=== PATIENT | male | born 1935 | race African-American/Black ===

== ENCOUNTER 2018-05-28 18:43 | Inpatient (IN) | payer MEDICARE, OTHER ==
[2018-05-28 19:47] LABS: HEMOGLOBIN 10.8 gm/dL (12-16); RED BLOOD COUNT 3.85 Mil/cmm (3.80-5.80)
[2018-05-28 19:49] LABS: HEMATOCRIT 32.9 % (41.0-60); MEAN CELL VOLUME 85.6 fl (80-99); MEAN CORPUSCULAR HGB CONC 32.8 pg (28.0-36.0); MEAN PLATELET VOLUME 9.4 fl; PLATELET COUNT 456 Th/cmm (150-400); RED CELL DISTRIBUTION WIDTH 15.7 % (11.5-20.0)
[2018-05-28 19:51] LABS: WHITE BLOOD COUNT 19.8 Th/cmm (4.8-10.8)
[2018-05-28 20:08] LABS: BAND NEUTROPHILE 7 % (0-10); LYMPHOCYTE 6 % (20-50); MONOCYTE 5 % (2-10); NEUTROPHILS 82 % (40-80)
[2018-05-28 20:11] LABS: ALB/GLOB RATIO 0.7 (1.0-1.8); ALBUMIN 3.5 gm/dL (4.2-5.5); ALKALINE PHOSPHATASE 78 U/L (34-104); ANION GAP 10.7 (7.0-16.0); BILIRUBIN,TOTAL 0.3 mg/dL (0.3-1.0); BUN - UREA NITROGEN 32 mg/dL (7-25); CARBON DIOXIDE 34.5 mEq/L (21.0-31.0); CHLORIDE 94 mEq/L (98-107); CREATININE - SERUM 0.8 mg/dL (0.7-1.3); GLUCOSE 119 mg/dL (70-105); POTASSIUM SERUM 4.2 mEq/L (3.5-5.1); SGOT 22 U/L (13-39); SGPT/ALT 10 U/L (7-52); SODIUM SERUM 135 mEq/L (136-145); TOTAL PROTEIN,SERUM 8.7 gm/dL (6.0-8.3)
[2018-05-28] MEDS ORDERED: Piperacillin Sodium/Tazobact 3.375 gm Vial IV ONE (20:56)
[2018-05-28] MEDS ORDERED: Magnesium Hydroxide (MOM) 30 mL UDC GT PRN (22:11)
[2018-05-28] MEDS ORDERED: guaiFENesin 200 MG/10 ML UDC PO PRN (22:13)
[2018-05-28] MEDS ORDERED: Maalox 30 mL Cup PO PRN (22:13)
[2018-05-28] MEDS ORDERED: Hydrocodone/APAP 5mg/325mg Tab PO PRN (22:13)
[2018-05-28] MEDS ORDERED: D5-0.45NS 1,000 ML IV SCH (22:15)
[2018-05-28] MEDS: D5-0.45NS 1,000 ML IV SCH (23:09)
[2018-05-29 03:10] VITALS: BP 116/65
--- NOTE | 2018-05-29 06:03 | ED Physician Chart ---
ED Chief Complaint/HPI - Patient Information Date Seen:: 05/29/18 Time Seen:: 19:20 Chief Complaint:: ABN LABS History of Present Illness:: 83 YR OLD MALE FROM [place] WITH ABN LABS ELEVATED WBC TO 20 K PT NON VERBAL AND TRACH IN PLACE MUCG COUGH AND SECRETIONS Allergies:: Allergies Allergy/AdvReac Type Severity Reaction Status Date / Time No Known Allergies Allergy Verified 05/28/18 19:04 ED Review of Systems - Review of Systems General/Constitutional: No fever Skin: No skin lesions Neck: No neck pain Cardio Vascular: No chest pain Pulmonary: No SOB GI: No vomiting, No diarrhea G/U: No dysuria Musculoskeletal: No bone or joint pain Endocrine: No polyuria Allergic/Immuno: No urticaria Neurological: No focal symptoms ED Past Medical History - Past Medical History Obtainable: No Past Medical History: Asthma/COPD, Dyslipidemia, Other (PNEUMONIA SEPSIS COPD AFIB CELLULITIS) Surgical History: PEG/GTube, other (TRACH) Family Medical History - Family Member Mother History Unknown: Yes Ethnicity: Unknown Living Status: Unknown ED Physical Exam - Physical Examination General/Constitutional: Alert Head: Atraumatic ENMT: External ears, nose nl Neck: Nontender Respiratory: Nl effort/Exclusion Cardio Vascular: RRR, No murmur, gallop, rubs GI: No tenderness/rebounding/guarding Extremities: No tenderness or effusion ED Labs/Radiology/EKG Results - Lab Results Results: Laboratory Tests 05/28/18 05/28/18 05/28/18 19:35 19:35 19:35 WBC 19.8 H RBC 3.85 Hgb 10.8 L Hct 32.9 L MCV 85.6 MCH 28.0 MCHC Differential 32.8 RDW 15.7 Plt Count 456 H MPV 9.4 Add Manual Diff YES Neutrophils % SPECIFICATION MANAGER Band Neutrophils % 7 Lymphocytes % SPECIFICATION MANAGER Monocytes % SPECIFICATION MANAGER Eosinophils % SPECIFICATION MANAGER Basophils % SPECIFICATION MANAGER Neutrophils (Manual) 82 H Lymphocytes 6 L Monocytes 5 Sodium 135 L Potassium 4.2 Chloride 94 L Carbon Dioxide 34.5 H Anion Gap 10.7 BUN 32 H Creatinine 0.8 Est GFR ( Amer) TNP Est GFR (Non-Af Amer) TNP BUN/Creatinine Ratio 40.0 Glucose 119 H Whole Bld Lactic Acid Calcium 10.0 Total Bilirubin 0.3 AST 22 ALT 10 Alkaline Phosphatase 78 Total Protein 8.7 H Albumin 3.5 L Globulin 5.2 Albumin/Globulin Ratio 0.7 L TSH 2.08 05/28/18 19:35 WBC RBC Hgb Hct MCV MCH MCHC Differential RDW Plt Count MPV Add Manual Diff Neutrophils % Band Neutrophils % Lymphocytes % Monocytes % Eosinophils % Basophils % Neutrophils (Manual) Lymphocytes Monocytes Sodium Potassium Chloride Carbon Dioxide Anion Gap BUN Creatinine Est GFR ( Amer) Est GFR (Non-Af Amer) BUN/Creatinine Ratio Glucose Whole Bld Lactic Acid 2.16 H* Calcium Total Bilirubin AST ALT Alkaline Phosphatase Total Protein Albumin Globulin Albumin/Globulin Ratio TSH ED Assessment - Assessment General Assessment: TRACH ELEVATED WBC CXR NO FULMINANT INFILTRATE ED Septic Shock - . Is Septic Shock (SBP<90, OR Lactate>4 mmol\L) present?: No ED Reassessment (Disposition) - Reassessment Reassessment:: TRACH ELEVATED WBC Reassessment Condition:: Improved - Diagnosis Diagnosis:: TRACH WBC 20 POSSIBLE SEPSIS - Patient Disposition Discharge/Transfer:: Acute Care w/in this hosp
[2018-05-29] MEDS: Ipratropium Neb 0.5 mg/2.5 mL UD HHN SCH ×4 (06:40→19:28)
[2018-05-29] MEDS: Albuterol Nebulizer 2.5mg/3mL HHN SCH ×4 (06:40→19:28)
[2018-05-29] MEDS ORDERED: INSULIN HUMAN REGULAR 100 UNITS/ML UNIT SUBQ SCH (09:00)
--- NOTE | 2018-05-29 09:35 | Diagnostic Imaging Report ---
Exam: Portable chest x-ray HISTORY: Shortness of breath. Findings: Portable examination of the chest at 1948 hours reviewed, no prior studies available for comparison. The study demonstrates left basilar infiltrate and effusion. The right lung parenchyma is well aerated. Tracheostomy tube midline. Bony thorax intact. IMPRESSION: Left basilar infiltrate and effusion. Follow-up exam is recommended.
[2018-05-29] MEDS: Multivitamin w/ Minerals 15 mL UDC GT SCH (09:45)
[2018-05-29] MEDS: Pantoprazole 40 mg/Packet GT SCH (09:45)
[2018-05-29] MEDS: Chlorhexidine Gluconate 0.12% 480mL Bottle MM SCH ×2 (09:46)
[2018-05-29] MEDS: Lidocaine 5% Patch TD SCH (09:47)
[2018-05-29] MEDS: Ferrous Sulfate 300 MG/5 ML UDC GT SCH ×2 (10:07→16:46)
[2018-05-29] MEDS: DICLOFENAC SODIUM 1% TP SCH ×3 (10:10→16:28)
[2018-05-29] MEDS: INSULIN ASPART SLIDING SCALE 100 UNITS/ML UNIT SUBQ SCH (10:44)
[2018-05-29] MEDS: D5-0.45NS 1,000 ML IV SCH (12:43)
--- NOTE | 2018-05-29 14:50 | Internal Medicine Prog Note ---
Internal Medicine Subjective - Subjective Service Date: 05/29/18 ([id number] [facility]) Internal Medicine Objective - Results Result Diagrams: 05/28/18 19:35 05/28/18 19:35 Recent Labs: Laboratory Last Values WBC 19.8 Th/cmm (4.8-10.8) H 05/28/18 19:35 RBC 3.85 Mil/cmm (3.80-5.80) 05/28/18 19:35 Hgb 10.8 gm/dL (12-16) L 05/28/18 19:35 Hct 32.9 % (41.0-60) L 05/28/18 19:35 MCV 85.6 fl (80-99) 05/28/18 19:35 MCH 28.0 pg (27.0-31.0) 05/28/18 19:35 MCHC Differential 32.8 pg (28.0-36.0) 05/28/18 19:35 RDW 15.7 % (11.5-20.0) 05/28/18 19:35 Plt Count 456 Th/cmm (150-400) H 05/28/18 19:35 MPV 9.4 fl 05/28/18 19:35 Add Manual Diff YES 05/28/18 19:35 Neutrophils % ASSOCIATE 05/28/18 19:35 Band Neutrophils % 7 % (0-10) 05/28/18 19:35 Lymphocytes % ASSOCIATE 05/28/18 19:35 Monocytes % ASSOCIATE 05/28/18 19:35 Eosinophils % ASSOCIATE 05/28/18 19:35 Basophils % ASSOCIATE 05/28/18 19:35 Neutrophils (Manual) 82 % (40-80) H 05/28/18 19:35 Lymphocytes 6 % (20-50) L 05/28/18 19:35 Monocytes 5 % (2-10) 05/28/18 19:35 Sodium 135 mEq/L (136-145) L 05/28/18 19:35 Potassium 4.2 mEq/L (3.5-5.1) 05/28/18 19:35 Chloride 94 mEq/L (98-107) L 05/28/18 19:35 Carbon Dioxide 34.5 mEq/L (21.0-31.0) H 05/28/18 19:35 Anion Gap 10.7 (7.0-16.0) 05/28/18 19:35 BUN 32 mg/dL (7-25) H 05/28/18 19:35 Creatinine 0.8 mg/dL (0.7-1.3) 05/28/18 19:35 Est GFR ( Amer) TNP 05/28/18 19:35 Est GFR (Non-Af Amer) TNP 05/28/18 19:35 BUN/Creatinine Ratio 40.0 05/28/18 19:35 Glucose 119 mg/dL (70-105) H 05/28/18 19:35 POC Glucose 129 MG/DL (70 - 105) H 05/29/18 10:03 Whole Bld Lactic Acid 1.51 mmol/L (0.60-1.99) 05/28/18 21:35 Calcium 10.0 mg/dL (8.6-10.3) 05/28/18 19:35 Total Bilirubin 0.3 mg/dL (0.3-1.0) 05/28/18 19:35 AST 22 U/L (13-39) 05/28/18 19:35 ALT 10 U/L (7-52) 05/28/18 19:35 Alkaline Phosphatase 78 U/L (34-104) 05/28/18 19:35 Total Protein 8.7 gm/dL (6.0-8.3) H 05/28/18 19:35 Albumin 3.5 gm/dL (4.2-5.5) L 05/28/18 19:35 Globulin 5.2 gm/dL 05/28/18 19:35 Albumin/Globulin Ratio 0.7 (1.0-1.8) L 05/28/18 19:35 TSH 2.08 uIU/ml (0.34-5.60) 05/28/18 19:35 RPR NONREACTIVE (NONREACTIVE) 05/28/18 19:35 - Physical Exam Vitals and I&O: Vital Signs Temp 97.0 F 05/29/18 11:39 Pulse 59 05/29/18 11:39 Resp 18 05/29/18 11:39 BP 114/53 05/29/18 11:39 Pulse Ox 100 05/29/18 11:39 Intake & Output 05/28/18 05/29/18 05/29/18 18:59 06:59 18:59 Intake Total 450 1000 Output Total 0 Balance 450 1000 Weight (lbs) 138 lb 8 oz Intake: Intake, IV Amount 50 1000 Cefepime 1 gm In Dextrose 50 5% 50 ml @ 100 mls/hr IV Q24H [facility] Rx#:[id number] D5-0.45NS 1,000 ml @ 100 1000 mls/hr IV .Q10H [facility] Rx#: [id number] Other 400 Output: Gastric Drainage 0 Other: # Voids 2 # Bowel Movements 0 Weight Source Bedscale Active Medications: Current Medications Acetaminophen (Tylenol) 650 mg GT Q6HR PRN PRN Reason: MILD PAIN 1-3 OR TEMP >101 Stop: 07/27/18 22:10 Acetaminophen (Tylenol) 650 mg PO Q4H PRN PRN Reason: Mild Pain 1-3/ Fever above 101 Stop: 07/27/18 22:12 Acetaminophen/Hydrocodone Bitart (Stewardson 5mg/325mg) 1 tab PO Q4H PRN PRN Reason: Pain (Severe) 8-10 Stop: 07/27/18 22:12 Al Hydrox/Mg Hydrox/Simethicone (Maalox) 30 ml PO Q6H PRN PRN Reason: Dyspepsia Stop: 07/27/18 22:12 Albuterol Sulfate (Albuterol 2.5mg/3ml Neb Ud) 2.5 mg HHN QIDRT [facility] Stop: 07/28/18 06:59 Last Admin: 05/29/18 11:31 Dose: 2.5 mg Ascorbic Acid (Vitamin C) 500 mg GT DAILY [facility] Stop: 07/28/18 08:59 Last Admin: 05/29/18 09:45 Dose: 500 mg Atorvastatin Calcium (Lipitor) 40 mg GT HS [facility] Stop: 07/28/18 20:59 Chlorhexidine Gluconate (Peridex) 15 ml MM Q12H [facility] Stop: 07/27/18 22:14 Last Admin: 05/29/18 09:46 Dose: 15 ml Ferrous Sulfate (Iron) 450 mg GT Q8H [facility] Stop: 07/28/18 08:59 Last Admin: 05/29/18 10:07 Dose: 450 mg Guaifenesin (Robitussin) 200 mg PO Q4HR PRN PRN Reason: Cough or Congestion Stop: 07/27/18 22:12 Cefepime HCl 1 gm/ Dextrose 50 mls @ 100 mls/hr IV Q24H [facility] Stop: 07/27/18 22:44 Last Infusion: 05/29/18 00:10 Dose: Infused Vancomycin HCl 1 gm/ Sodium (Chloride) 250 mls @ 166.667 mls/hr IV Q24HR@0900 [facility] Stop: 07/28/18 09:59 Last Admin: 05/29/18 09:46 Dose: 166.667 mls/hr Dextrose/Sodium Chloride (D5-0.45ns) 1,000 mls @ 100 mls/hr IV .Q10H [facility] Stop: 07/27/18 22:14 Last Admin: 05/29/18 12:43 Dose: 100 mls/hr Insulin Aspart (Novolog Insulin Sliding Scale) 0 units SUBQ DAILY [facility]; Protocol Stop: 07/28/18 08:59 Last Admin: 05/29/18 10:44 Dose: 2 units Ipratropium Ed[place] (Atrovent Neb 0.5mg/2.5ml) 0.5 mg HHN QIDRT [facility] Stop: 07/28/18 06:59 Last Admin: 05/29/18 11:31 Dose: 0.5 mg Lidocaine (Lidoderm 5% Patch) 1 patch TD DAILY [facility] Stop: 07/28/18 08:59 Last Admin: 05/29/18 09:47 Dose: 1 patch Magnesium Hydroxide (Milk Of Magnesia) 30 ml GT Q12H PRN PRN Reason: Constipation Stop: 07/27/18 22:10 Metoprolol Tartrate (Lopressor) 25 mg GT Q12H [facility] Stop: 07/27/18 22:14 Last Admin: 05/29/18 09:45 Dose: 25 mg Miscellaneous (Diclofenac Sodium [Diclo Gel]) 1 % TP QID [facility] Stop: 07/28/18 08:59 Last Admin: 05/29/18 12:49 Dose: Not Given Miscellaneous (Vancomycin Iv Per Pharmacy) 1 ea MC PRN [facility] Stop: 07/27/18 22:14 Multivitamins/Minerals (Theragran M) 15 ml GT DAILY [facility] Stop: 07/28/18 08:59 Last Admin: 05/29/18 09:45 Dose: 15 ml Ondansetron HCl (Zofran) 4 mg IV Q8H PRN PRN Reason: Nausea / Vomiting Stop: 07/27/18 22:12 Pantoprazole Sodium (Protonix) 40 mg GT Q24H [facility] Stop: 07/28/18 08:59 Last Admin: 05/29/18 09:45 Dose: 40 mg Zolpidem Tartrate (Ambien) 10 mg PO HS PRN PRN Reason: Insomnia Stop: 07/27/18 22:12 Nutritional Asmnt/Malnutr-PDOC - Dietary Evaluation Malnutrition Findings (Please click <Entered> for more info): Nutritional Asmnt/Malnutrition Start: 05/29/18 12: 20 Text: Status: Active Freq: Protocol: Document 05/29/18 12:20 MMULHERN (Rec: 05/29/18 12:34 MMULHERN MIRANDA- [email or web address]) Nutritional Asmnt/Malnutrition Patient General Information Nutritional Screening High Risk Diagnosis Pneumonia, Sepsis Pertinent Medical Hx/Surgical Hx CHRONIC RESPIRATORY FAILURE, PNEUMONIA, SEPSIS, MUSCLE WEAKNESS, LEFT ARM PAIN, TRACHEOSTOMY, GASTROSTOMY WITH INFECTION, ATRIAL FIBRILLATION, COPD, DYSARTHRIA , ANARTHRIA, ABDOMINAL WALL CELLULITIS, HYPERCHOLESTEROLEMIA, ABNORMAL GAIT AND MOBILITY, DYSYPHAGIA Subjective Information Per nursing notes, patient is tolerating current tube feeding regimen without gastric residuals. Current tube feeding regimen provides 1600 ml volume, 1920 kcal, 96 gm protein, 1288 ml free water . Current Diet Order/ Nutrition Support Glucerna 1.2 at 80 ml/hr x 20 hours (12p-8a). Patient / S.O Not Indicated Pertinent Medications maalox, vitamin C, lipitor, D5 -0.45Ns, Iron, Novolog, MOM, Abx, Theragran, zofran, protonix Pertinent Labs (05/28) Na 135, BUN 32, Albumin 3.5 Nutritional Hx/Data Height 5 ft 6 in Height (Calculated Centimeters) 167.6 Current Weight (lbs) 138 lb Weight (Calculated Kilograms) 62.6 Weight (Calculated Grams) 68576.7 Yale Body Weight 142 % Yale Body Weight 97 Body Mass Index (BMI) 22.2 Recent Weight Change No Weight Status Approriate GI Symptoms GI Symptoms None Last BM none noted since admission Difficult in: Swallowing Food Allergies No Cultural/Ethnic/Protestant Belief None indicated Usual diet at home Tube feeding Skin Integrity/Comment: Ivan 17, intact Estimated Nutritional Goals BEE in Kcals: Using Current wt Calories/Kcals/Kg 25-30 kcal/kg using CBW 62.7kg Kcals Calculated 6746-7462 kcal/day Protein: Using Current wt Protein g/k.2-1.5 gm/kg - Sepsis/ pneumonia Protein Calculated 75-95 gm/day Fluid: ml 8102-5885 ml/day (1 ml/kcal) Nutritional Problem 1. Problem Problem No nutrition diagnosis at this time Intervention/Recommendation Comments 1. continue current tube feeding regimen as toelrated by patient as it is adequate to meet nutrient needs. Expected Outcomes/Goals Expected Outcomes/Goals Tolerates tube feeding at goal rate to meet 100% of nutrient needs, weight stable, nutrition related labs WNL
--- NOTE | 2018-05-29 18:33 | Consultation ---
DATE OF CONSULTATION: 05/29/[address] Hinkle for this consultation. HISTORY OF PRESENT ILLNESS: This is an 83-year-old male who has history of chronic respiratory failure, tracheostomy dependent, who came to the Emergency Room, was sent from the hospital for leukocytosis, possible mucus plugging and increased secretions. The patient admitted for possible sepsis. Started on IV antibiotics, nebulizer treatment and admitted for treatment and management. PAST MEDICAL HISTORY: As above, in addition to diabetes mellitus, dysphagia and COPD. SOCIAL HISTORY: Remote history of smoking. REVIEW OF SYSTEMS: GENERAL: Some weakness and fatigue. CARDIOVASCULAR: No chest pain. RESPIRATORY: Some congestion and cough. GASTROINTESTINAL: No nausea, vomiting. PHYSICAL EXAMINATION: GENERAL: Awake, alert, not in acute distress. VITAL SIGNS: Temperature is 97.0, pulse 50, respirations 18, blood pressure 114/53, saturation 100%. HEENT: Atraumatic, normocephalic. Pupils react to light and accommodation. Ears, nose and throat normal. NECK: Supple. No JVD. CHEST: There are few rhonchi bilaterally. HEART: Regular rate and rhythm. ABDOMEN: Soft. EXTREMITIES: No edema. LABORATORY DATA: WBC is 19.8, hemoglobin is 10.8, hematocrit 32.9, platelets 456. Sodium 135, potassium 4.2, BUN is 13, creatinine 0.8. Lactic acid 2.16. Chest x-ray: Some low lung volume infiltrate and effusion in the left base. IMPRESSION: This is an 83-year-old male with leukocytosis. 1. Chronic respiratory failure. 2. Chronic obstructive pulmonary disease. 3. Leukocytosis. 4. Pneumonia. 5. Rule out urinary tract infection. PLAN: 1. IV antibiotics. 2. Nebulizer treatment. 3. Pulmonary toilet. 4. Tracheostomy care. 5. UA with cultures. 6. Increase IV fluids. Thank you very much for this consultation. I will follow the patient with you. JOB# [id number]
--- NOTE | 2018-05-29 18:42 | History & Physical ---
ADMIT DATE: 05/29/2018 COVERING FOR: Dr. Ricardo Hinkle. CHIEF COMPLAINT: Abnormal labs, WBC of 20,000. HISTORY OF PRESENT ILLNESS: This is an 83-year-old -[place] male who is a resident of [facility], admitted to the telemetry unit due to WBC of 20,000. No reports of any fevers at the [facility]. PAST MEDICAL HISTORY: Asthma, COPD, dyslipidemia, acute respiratory failure, and pneumonia. PAST SURGICAL HISTORY: PEG and trach. FAMILY HISTORY: Noncontributory. REVIEW OF SYSTEMS: GENERAL: Denies any fevers or chills. CARDIOVASCULAR: Denies chest pain. RESPIRATORY: The patient complains of cough. GASTROINTESTINAL: Denies nausea, vomiting, abdominal pain. GENITOURINARY: Denies increased frequency or dysuria. NEUROLOGIC: No headaches, seizures, or syncope. All systems are reviewed and negative. PHYSICAL EXAMINATION: GENERAL: Elderly male, awake, alert, on T-bar, no apparent distress. VITAL SIGNS: Temperature 97.0, heart rate 59, blood pressure 114/53, respirations 18, O2 100%. HEENT: Head: Normocephalic, atraumatic. NECK: Tracheostomy in place. CARDIOVASCULAR: Regular rate and rhythm. No murmurs or gallops. LUNGS: Rhonchi bilaterally upon auscultation. HEART: Regular rate and rhythm. ABDOMEN: Soft, nontender, nondistended. SKIN: Positive for excoriations. LABORATORY DATA: WBC 19.8, H and H 10.8 and 32.9, platelet of 456. Sodium 135, potassium 4.2, chloride 94, BUN 32, creatinine 0.8, whole lactic acid is 2.16. ASSESSMENT: Pneumonia, sepsis, acute respiratory failure, asthma, dyslipidemia, tracheostomy status, leukocytosis, acute renal insufficiency, rule out dehydration, mild protein-calorie malnutrition, left lower lobe pneumonia. PLAN: Will be admitted the patient to the telemetry unit. We will get Pulmonology on the case. Keep the patient on empiric IV antibiotics of Maxipime 1 gram IV q.24 hours. We will collect sputum for culture. We will get followup labs for tomorrow morning. IV fluids for hydration. We will continue to monitor this patient. JOB# [id number]
[2018-05-29] MEDS: Atorvastatin Calcium 10 MG TAB GT SCH (20:38)
[2018-05-30] MEDS: Chlorhexidine Gluconate 0.12% 480mL Bottle MM SCH ×2 (00:22→10:14)
[2018-05-30] MEDS: Ferrous Sulfate 300 MG/5 ML UDC GT SCH ×3 (00:23→16:17)
[2018-05-30] MEDS: Ipratropium Neb 0.5 mg/2.5 mL UD HHN SCH ×4 (06:54→19:16)
[2018-05-30] MEDS: Albuterol Nebulizer 2.5mg/3mL HHN SCH ×4 (06:54→19:16)
[2018-05-30 08:21] LABS: % EOSINOPHILS 0.3 % (0.0-5.0); % MONOCYTES 8.2 % (2.0-10.0); % NEUTROPHILS 81.5 % (40.0-80.0); HEMATOCRIT 27.6 % (41.0-60); HEMOGLOBIN 9.5 gm/dL (12-16); LYMPHOCYTE ABSOLUTE 1.4 Th/cmm (1.5-3.0); MEAN CELL VOLUME 88.1 fl (80-99); MEAN CORPUSCULAR HEMOGLOBIN 30.4 pg (27.0-31.0); MEAN CORPUSCULAR HGB CONC 34.5 pg (28.0-36.0); MEAN PLATELET VOLUME 9.3 fl; MONOCYTE ABSOLUTE 1.1 Th/cmm (0.3-1.0); NEUTROPHILE ABSOLUTE 11.3 Th/cmm (1.8-8.0); PLATELET COUNT 426 Th/cmm (150-400); RED BLOOD COUNT 3.13 Mil/cmm (3.80-5.80); RED CELL DISTRIBUTION WIDTH 15.5 % (11.5-20.0); WHITE BLOOD COUNT 13.8 Th/cmm (4.8-10.8)
[2018-05-30 08:25] LABS: ANION GAP 8.1 (7.0-16.0); BUN - UREA NITROGEN 23 mg/dL (7-25); CALCIUM SERUM 9.5 mg/dL (8.6-10.3); CARBON DIOXIDE 31.8 mEq/L (21.0-31.0); CHLORIDE 100 mEq/L (98-107); CREATININE - SERUM 0.7 mg/dL (0.7-1.3); GLUCOSE 132 mg/dL (70-105); POTASSIUM SERUM 3.9 mEq/L (3.5-5.1); SODIUM SERUM 136 mEq/L (136-145)
[2018-05-30] MEDS: Lidocaine 5% Patch TD SCH (08:46)
[2018-05-30] MEDS: Multivitamin w/ Minerals 15 mL UDC GT SCH (08:49)
[2018-05-30] MEDS: Pantoprazole 40 mg/Packet GT SCH (08:49)
[2018-05-30] MEDS: INSULIN ASPART SLIDING SCALE 100 UNITS/ML UNIT SUBQ SCH (08:51)
[2018-05-30] MEDS: D5-0.45NS 1,000 ML IV SCH (08:57)
[2018-05-30] MEDS ORDERED: Probiotic Screen MC PRN (14:46)
--- NOTE | 2018-05-30 15:17 | Internal Medicine Prog Note ---
Internal Medicine Subjective - Subjective Service Date: 05/30/18 (noted with copious amount of secretions) Patient seen and examined:: with staff Patient is:: awake, verbal Patient Complaints of:: congestion Per staff patient has:: tolerating meds Internal Medicine Objective - Results Result Diagrams: 05/30/18 08:00 05/30/18 08:00 Recent Labs: Laboratory Last Values WBC 13.8 Th/cmm (4.8-10.8) H 05/30/18 08:00 RBC 3.13 Mil/cmm (3.80-5.80) L 05/30/18 08:00 Hgb 9.5 gm/dL (12-16) L 05/30/18 08:00 Hct 27.6 % (41.0-60) L 05/30/18 08:00 MCV 88.1 fl (80-99) 05/30/18 08:00 MCH 30.4 pg (27.0-31.0) 05/30/18 08:00 MCHC Differential 34.5 pg (28.0-36.0) 05/30/18 08:00 RDW 15.5 % (11.5-20.0) 05/30/18 08:00 Plt Count 426 Th/cmm (150-400) H 05/30/18 08:00 MPV 9.3 fl 05/30/18 08:00 Add Manual Diff YES 05/28/18 19:35 Neutrophils % 81.5 % (40.0-80.0) H 05/30/18 08:00 Band Neutrophils % 7 % (0-10) 05/28/18 19:35 Lymphocytes % 10.0 % (20.0-50.0) L 05/30/18 08:00 Monocytes % 8.2 % (2.0-10.0) 05/30/18 08:00 Eosinophils % 0.3 % (0.0-5.0) 05/30/18 08:00 Basophils % 0.0 % (0.0-2.0) 05/30/18 08:00 Neutrophils (Manual) 82 % (40-80) H 05/28/18 19:35 Lymphocytes 6 % (20-50) L 05/28/18 19:35 Monocytes 5 % (2-10) 05/28/18 19:35 Sodium 136 mEq/L (136-145) 05/30/18 08:00 Potassium 3.9 mEq/L (3.5-5.1) 05/30/18 08:00 Chloride 100 mEq/L (98-107) 05/30/18 08:00 Carbon Dioxide 31.8 mEq/L (21.0-31.0) H 05/30/18 08:00 Anion Gap 8.1 (7.0-16.0) 05/30/18 08:00 BUN 23 mg/dL (7-25) 05/30/18 08:00 Creatinine 0.7 mg/dL (0.7-1.3) 05/30/18 08:00 Est GFR ( Amer) TNP 05/30/18 08:00 Est GFR (Non-Af Amer) TNP 05/30/18 08:00 BUN/Creatinine Ratio 32.9 05/30/18 08:00 Glucose 132 mg/dL (70-105) H 05/30/18 08:00 POC Glucose 133 MG/DL (70 - 105) H 05/30/18 08:32 Whole Bld Lactic Acid 1.51 mmol/L (0.60-1.99) 05/28/18 21:35 Calcium 9.5 mg/dL (8.6-10.3) 05/30/18 08:00 Total Bilirubin 0.3 mg/dL (0.3-1.0) 05/28/18 19:35 AST 22 U/L (13-39) 05/28/18 19:35 ALT 10 U/L (7-52) 05/28/18 19:35 Alkaline Phosphatase 78 U/L (34-104) 05/28/18 19:35 Total Protein 8.7 gm/dL (6.0-8.3) H 05/28/18 19:35 Albumin 3.5 gm/dL (4.2-5.5) L 05/28/18 19:35 Globulin 5.2 gm/dL 05/28/18 19:35 Albumin/Globulin Ratio 0.7 (1.0-1.8) L 05/28/18 19:35 TSH 2.08 uIU/ml (0.34-5.60) 05/28/18 19:35 Vancomycin Trough 9.1 ug/mL (5-10) 05/30/18 08:00 RPR NONREACTIVE (NONREACTIVE) 05/28/18 19:35 - Physical Exam Vitals and I&O: Vital Signs Temp 98.2 F 05/30/18 15:09 Pulse 64 05/30/18 15:09 Resp 18 05/30/18 15:09 BP 116/70 05/30/18 15:09 Pulse Ox 99 05/30/18 15:09 Intake & Output 05/29/18 05/30/18 05/30/18 18:59 06:59 18:59 Intake Total 2130 50 Output Total 0 Balance 2130 50 Weight (lbs) 138 lb Intake: Intake, IV Amount 1250 50 Cefepime 1 gm In Dextrose 50 5% 50 ml @ 100 mls/hr IV Q24H [facility] Rx#:[id number] D5-0.45NS 1,000 ml @ 100 1000 mls/hr IV .Q10H [facility] Rx#: [id number] Vancomycin HCl 1 gm In 250 Sodium Chloride 0.9% 250 ml @ 166.667 mls/hr IV Q24HR@0900 [facility] Rx#: [id number] TPN/PPN 880 Output: Other 0 Other: # Voids 3 # Bowel Movements 1 Weight Source Bedscale Active Medications: Current Medications Acetaminophen (Tylenol) 650 mg GT Q6HR PRN PRN Reason: MILD PAIN 1-3 OR TEMP >101 Stop: 07/27/18 22:10 Acetaminophen (Tylenol) 650 mg PO Q4H PRN PRN Reason: Mild Pain 1-3/ Fever above 101 Stop: 07/27/18 22:12 Acetaminophen/Hydrocodone Bitart ([place] 5mg/325mg) 1 tab PO Q4H PRN PRN Reason: Pain (Severe) 8-10 Stop: 07/27/18 22:12 Al Hydrox/Mg Hydrox/Simethicone (Maalox) 30 ml PO Q6H PRN PRN Reason: Dyspepsia Stop: 07/27/18 22:12 Albuterol Sulfate (Albuterol 2.5mg/3ml Neb Ud) 2.5 mg HHN QIDRT [facility] Stop: 07/28/18 06:59 Last Admin: 05/30/18 14:25 Dose: 2.5 mg Ascorbic Acid (Vitamin C) 500 mg GT DAILY [facility] Stop: 07/28/18 08:59 Last Admin: 05/30/18 08:49 Dose: 500 mg Atorvastatin Calcium (Lipitor) 40 mg GT HS [facility] Stop: 07/28/18 20:59 Last Admin: 05/29/18 20:38 Dose: 40 mg Chlorhexidine Gluconate (Peridex) 15 ml MM Q12H [facility] Stop: 07/27/18 22:14 Last Admin: 05/30/18 10:14 Dose: 15 ml Ferrous Sulfate (Iron) 450 mg GT Q8H [facility] Stop: 07/28/18 08:59 Last Admin: 05/30/18 08:49 Dose: 450 mg Guaifenesin (Robitussin) 200 mg PO Q4HR PRN PRN Reason: Cough or Congestion Stop: 07/27/18 22:12 Last Admin: 05/29/18 20:38 Dose: 200 mg Cefepime HCl 1 gm/ Dextrose 50 mls @ 100 mls/hr IV Q24H [facility] Stop: 07/27/18 22:44 Last Infusion: 05/30/18 00:50 Dose: Infused Vancomycin HCl 1 gm/ Sodium (Chloride) 250 mls @ 166.667 mls/hr IV Q24HR@0900 [facility] Stop: 07/28/18 09:59 Last Admin: 05/30/18 08:48 Dose: 167 mls/hr Dextrose/Sodium Chloride (D5-0.45ns) 1,000 mls @ 50 mls/hr IV .Q20H [facility] Stop: 07/28/18 15:14 Last Admin: 05/30/18 08:57 Dose: 50 mls/hr Vancomycin HCl 0.75 gm/ Sodium (Chloride) 250 mls @ 165 mls/hr IV Q12H [facility] Stop: 07/30/18 00:59 Insulin Aspart (Novolog Insulin Sliding Scale) 0 units SUBQ DAILY [facility]; Protocol Stop: 07/28/18 08:59 Last Admin: 05/30/18 08:51 Dose: 2 units Ipratropium [place] (Atrovent Neb 0.5mg/2.5ml) 0.5 mg HHN QIDRT [facility] Stop: 07/28/18 06:59 Last Admin: 05/30/18 14:25 Dose: 0.5 mg Lactobacillus Rhamnosus (Culturelle 15b) 1 each PO DAILY [facility] Stop: 07/29/18 14:59 Lidocaine (Lidoderm 5% Patch) 1 patch TD DAILY [facility] Stop: 07/28/18 08:59 Last Admin: 05/30/18 08:46 Dose: 1 patch Magnesium Hydroxide (Milk Of Magnesia) 30 ml GT Q12H PRN PRN Reason: Constipation Stop: 07/27/18 22:10 Metoprolol Tartrate (Lopressor) 25 mg GT Q12H [facility] Stop: 07/27/18 22:14 Last Admin: 05/30/18 10:14 Dose: Not Given Miscellaneous (Diclofenac Sodium [Diclo Gel]) 1 % TP QID [facility] Stop: 07/28/18 08:59 Last Admin: 05/29/18 16:28 Dose: Not Given Miscellaneous (Vancomycin Iv Per Pharmacy) 1 ea PRN [facility] Stop: 07/27/18 22:14 Miscellaneous (Probiotic Screen) 1 [facility] PRN PRN PRN Reason: PROTOCOL Stop: 07/29/18 14:45 Multivitamins/Minerals (Theragran M) 15 ml GT DAILY [facility] Stop: 07/28/18 08:59 Last Admin: 05/30/18 08:49 Dose: 15 ml Ondansetron HCl (Zofran) 4 mg IV Q8H PRN PRN Reason: Nausea / Vomiting Stop: 07/27/18 22:12 Pantoprazole Sodium (Protonix) 40 mg GT Q24H [facility] Stop: 07/28/18 08:59 Last Admin: 05/30/18 08:49 Dose: 40 mg Zolpidem Tartrate (Ambien) 10 mg PO HS PRN PRN Reason: Insomnia Stop: 07/27/18 22:12 General: weak, alert HEENT: NC/AT, PERRLA Neck: + trach Lungs: ronchi Cardiovascular: RRR, Normal S1, Normal S2, without murmur Abdomen: soft, non-tender, non-distended Extremities: excoriation Neurological: alert Internal Medicine Assmt/Plan - Assessment Assessment: left lower lobe pna sepsis acute respiratory failure asthma dyslipidemia tracheostomy status leukocytosis acute renal insufficiency r/o dehydration mild protein calorie malnutrition - Plan Plan: continue in-line respiratory treatments suction patient as needed aspiration precautions continue ivabx await for sputum culture continue ivf for hydration continue current plan of care Nutritional Asmnt/Malnutr-PDOC - Dietary Evaluation Malnutrition Findings (Please click <Entered> for more info): Nutritional Asmnt/Malnutrition Start: 05/29/18 12: 20 Text: Status: Complete Freq: Protocol: Document 05/29/18 12:20 TEJ (Rec: 05/29/18 12:34 TEJ [email or web address]- [email or web address]) Nutritional Asmnt/Malnutrition Patient General Information Nutritional Screening High Risk Diagnosis Pneumonia, Sepsis Pertinent Medical Hx/Surgical Hx CHRONIC RESPIRATORY FAILURE, PNEUMONIA, SEPSIS, MUSCLE WEAKNESS, LEFT ARM PAIN, TRACHEOSTOMY, GASTROSTOMY WITH INFECTION, ATRIAL FIBRILLATION, COPD, DYSARTHRIA , ANARTHRIA, ABDOMINAL WALL CELLULITIS, HYPERCHOLESTEROLEMIA, ABNORMAL GAIT AND MOBILITY, DYSYPHAGIA Subjective Information Per nursing notes, patient is tolerating current tube feeding regimen without gastric residuals. Current tube feeding regimen provides 1600 ml volume, 1920 kcal, 96 gm protein, 1288 ml free water . Patient visually seen with trach present; able to answer basic quesions with gestures and shaking head. Mild/ moderate temporal wasting noted. Verified tube feeding Glucerna, however TF was running at 70ml/hr rather than goal of 80ml/hr. Current Diet Order/ Nutrition Support Glucerna 1.2 at 80 ml/hr x 20 hours (12p-8a). Patient / S.O Not Indicated Pertinent Medications maalox, vitamin C, lipitor, D5 -0.45Ns, Iron, Novolog, MOM, Abx, Theragran, zofran, protonix Pertinent Labs (05/28) Na 135, BUN 32, Albumin 3.5 Nutritional Hx/Data Height 5 ft 6 in Height (Calculated Centimeters) 167.6 Current Weight (lbs) 138 lb Weight (Calculated Kilograms) 62.6 Weight (Calculated Grams) 03992.7 [place] Body Weight 142 % [place] Body Weight 97 Body Mass Index (BMI) 22.2 Recent Weight Change No Weight Status Approriate GI Symptoms GI Symptoms None Last BM none noted since admission Difficult in: Swallowing Food Allergies No Cultural/Ethnic/Sikh Belief None indicated Usual diet at home Tube feeding Skin Integrity/Comment: Ivan 17, intact Estimated Nutritional Goals BEE in Kcals: Using Current wt Calories/Kcals/Kg 25-30 kcal/kg using CBW 62.7kg Kcals Calculated 0490-3971 kcal/day Protein: Using Current wt Protein g/k.2-1.5 gm/kg - Sepsis/ pneumonia Protein Calculated 75-95 gm/day Fluid: ml 9317-1540 ml/day (1 ml/kcal) Nutritional Problem 1. Problem Problem No nutrition diagnosis at this time Intervention/Recommendation Comments 1. Continue current tube feeding regimen as toelrated by patient as it is adequate to meet nutrient needs. Make sure tube feeding is running at goal rate of 80ml/hr. Expected Outcomes/Goals Expected Outcomes/Goals Tolerates tube feeding at goal rate to meet 100% of nutrient needs, weight stable, nutrition related labs WNL F/U in 3-5 days as MR 06/01-11
[2018-05-30] MEDS: Lactobacillus Rhamnosus GG 15 Billion CFU CAP.SPRINK PO SCH (16:17)
[2018-05-30] MEDS: Atorvastatin Calcium 10 MG TAB GT SCH (21:15)
[2018-05-31] MEDS: Ferrous Sulfate 300 MG/5 ML UDC GT SCH ×3 (00:12→16:56)
[2018-05-31] MEDS: Chlorhexidine Gluconate 0.12% 480mL Bottle MM SCH ×3 (00:16→21:56)
[2018-05-31] MEDS: Ipratropium Neb 0.5 mg/2.5 mL UD HHN SCH ×4 (06:21→18:35)
[2018-05-31] MEDS: Albuterol Nebulizer 2.5mg/3mL HHN SCH ×4 (06:21→18:34)
[2018-05-31 07:09] LABS: ANION GAP 10.2 (7.0-16.0); BUN - UREA NITROGEN 19 mg/dL (7-25); CALCIUM SERUM 9.4 mg/dL (8.6-10.3); CARBON DIOXIDE 28.8 mEq/L (21.0-31.0); CHLORIDE 103 mEq/L (98-107); CREATININE - SERUM 0.6 mg/dL (0.7-1.3); GLUCOSE 124 mg/dL (70-105); SODIUM SERUM 138 mEq/L (136-145)
[2018-05-31 07:18] LABS: % BASOPHILS 0.2 % (0.0-2.0); % EOSINOPHILS 0.2 % (0.0-5.0); % LYMPHOCYTES 10.6 % (20.0-50.0); % MONOCYTES 5.3 % (2.0-10.0); % NEUTROPHILS 83.7 % (40.0-80.0); HEMOGLOBIN 10.2 gm/dL (12-16); LYMPHOCYTE ABSOLUTE 1.3 Th/cmm (1.5-3.0); MEAN CELL VOLUME 87.4 fl (80-99); MEAN CORPUSCULAR HEMOGLOBIN 28.7 pg (27.0-31.0); MEAN CORPUSCULAR HGB CONC 32.9 pg (28.0-36.0); MEAN PLATELET VOLUME 9.9 fl; MONOCYTE ABSOLUTE 0.7 Th/cmm (0.3-1.0); NEUTROPHILE ABSOLUTE 10.6 Th/cmm (1.8-8.0); PLATELET COUNT 427 Th/cmm (150-400); RED BLOOD COUNT 3.55 Mil/cmm (3.80-5.80); RED CELL DISTRIBUTION WIDTH 15.7 % (11.5-20.0); WHITE BLOOD COUNT 12.6 Th/cmm (4.8-10.8)
[2018-05-31] MEDS: Lactobacillus Rhamnosus GG 15 Billion CFU CAP.SPRINK PO SCH (09:20)
[2018-05-31] MEDS: Multivitamin w/ Minerals 15 mL UDC GT SCH (09:21)
[2018-05-31] MEDS: Pantoprazole 40 mg/Packet GT SCH (09:21)
[2018-05-31] MEDS: INSULIN ASPART SLIDING SCALE 100 UNITS/ML UNIT SUBQ SCH (10:03)
[2018-05-31] MEDS: Lidocaine 5% Patch TD SCH (10:04)
--- NOTE | 2018-05-31 10:32 | Internal Medicine Prog Note ---
Internal Medicine Subjective - Subjective Service Date: 05/31/18 Patient seen and examined:: with staff Patient is:: awake, verbal Patient Complaints of:: congestion Per staff patient has:: tolerating meds Internal Medicine Objective - Results Result Diagrams: 05/31/18 05:35 05/31/18 05:35 Recent Labs: Laboratory Last Values WBC 12.6 Th/cmm (4.8-10.8) H 05/31/18 05:35 Corrected WBC (auto) Th/cmm 05/31/18 05:35 RBC 3.55 Mil/cmm (3.80-5.80) L 05/31/18 05:35 Hgb 10.2 gm/dL (12-16) L 05/31/18 05:35 Hct 31.0 % (41.0-60) L 05/31/18 05:35 MCV 87.4 fl (80-99) 05/31/18 05:35 MCH 28.7 pg (27.0-31.0) 05/31/18 05:35 MCHC Differential 32.9 pg (28.0-36.0) 05/31/18 05:35 RDW 15.7 % (11.5-20.0) 05/31/18 05:35 Plt Count 427 Th/cmm (150-400) H 05/31/18 05:35 MPV 9.9 fl 05/31/18 05:35 Add Manual Diff YES 05/28/18 19:35 Neutrophils % 83.7 % (40.0-80.0) H 05/31/18 05:35 Band Neutrophils % 7 % (0-10) 05/28/18 19:35 Lymphocytes % 10.6 % (20.0-50.0) L 05/31/18 05:35 Monocytes % 5.3 % (2.0-10.0) 05/31/18 05:35 Eosinophils % 0.2 % (0.0-5.0) 05/31/18 05:35 Basophils % 0.2 % (0.0-2.0) 05/31/18 05:35 Neutrophils (Manual) 82 % (40-80) H 05/28/18 19:35 Lymphocytes 6 % (20-50) L 05/28/18 19:35 Monocytes 5 % (2-10) 05/28/18 19:35 Sodium 138 mEq/L (136-145) 05/31/18 05:35 Potassium 4.0 mEq/L (3.5-5.1) 05/31/18 05:35 Chloride 103 mEq/L (98-107) 05/31/18 05:35 Carbon Dioxide 28.8 mEq/L (21.0-31.0) 05/31/18 05:35 Anion Gap 10.2 (7.0-16.0) 05/31/18 05:35 BUN 19 mg/dL (7-25) 05/31/18 05:35 Creatinine 0.6 mg/dL (0.7-1.3) L 05/31/18 05:35 Est GFR ( Amer) TNP 05/31/18 05:35 Est GFR (Non-Af Amer) TNP 05/31/18 05:35 BUN/Creatinine Ratio 31.7 05/31/18 05:35 Glucose 124 mg/dL (70-105) H 05/31/18 05:35 POC Glucose 144 MG/DL (70 - 105) H 05/31/18 09:15 Whole Bld Lactic Acid 1.51 mmol/L (0.60-1.99) 05/28/18 21:35 Calcium 9.4 mg/dL (8.6-10.3) 05/31/18 05:35 Total Bilirubin 0.3 mg/dL (0.3-1.0) 05/28/18 19:35 AST 22 U/L (13-39) 05/28/18 19:35 ALT 10 U/L (7-52) 05/28/18 19:35 Alkaline Phosphatase 78 U/L (34-104) 05/28/18 19:35 Total Protein 8.7 gm/dL (6.0-8.3) H 05/28/18 19:35 Albumin 3.5 gm/dL (4.2-5.5) L 05/28/18 19:35 Globulin 5.2 gm/dL 05/28/18 19:35 Albumin/Globulin Ratio 0.7 (1.0-1.8) L 05/28/18 19:35 TSH 2.08 uIU/ml (0.34-5.60) 05/28/18 19:35 Vancomycin Trough 9.1 ug/mL (5-10) 05/30/18 08:00 RPR NONREACTIVE (NONREACTIVE) 05/28/18 19:35 - Physical Exam Vitals and I&O: Vital Signs Temp 97.2 F 05/31/18 08:00 Pulse 74 05/31/18 08:00 Resp 21 05/31/18 08:00 BP 133/70 05/31/18 08:00 Pulse Ox 96 05/31/18 08:00 Intake & Output 05/30/18 05/31/18 05/31/18 18:59 06:59 18:59 Intake Total 0 960 250 Balance 0 960 250 Weight (lbs) 138 lb 138 lb Intake: Intake, IV Amount 250 Vancomycin HCl 0.75 gm In 250 Sodium Chloride 0.9% 250 ml @ 165 mls/hr IV Q12H [facility] Rx#:[id number] Oral 0 Tube Feeding 960 Other: # Voids 3 4 # Bowel Movements 0 1 Weight Source Bedscale Bedscale Active Medications: Current Medications Acetaminophen (Tylenol) 650 mg GT Q6HR PRN PRN Reason: MILD PAIN 1-3 OR TEMP >101 Stop: 07/27/18 22:10 Last Admin: 05/31/18 09:35 Dose: 650 mg Acetaminophen (Tylenol) 650 mg PO Q4H PRN PRN Reason: Mild Pain 1-3/ Fever above 101 Stop: 07/27/18 22:12 Acetaminophen/Hydrocodone Bitart ([place] 5mg/325mg) 1 tab PO Q4H PRN PRN Reason: Pain (Severe) 8-10 Stop: 07/27/18 22:12 Al Hydrox/Mg Hydrox/Simethicone (Maalox) 30 ml PO Q6H PRN PRN Reason: Dyspepsia Stop: 07/27/18 22:12 Albuterol Sulfate (Albuterol 2.5mg/3ml Neb Ud) 2.5 mg HHN QIDRT [facility] Stop: 07/28/18 06:59 Last Admin: 05/31/18 10:16 Dose: 2.5 mg Ascorbic Acid (Vitamin C) 500 mg GT DAILY [facility] Stop: 07/28/18 08:59 Last Admin: 05/31/18 09:20 Dose: 500 mg Atorvastatin Calcium (Lipitor) 40 mg GT HS [facility] Stop: 07/28/18 20:59 Last Admin: 05/30/18 21:15 Dose: 40 mg Chlorhexidine Gluconate (Peridex) 15 ml MM Q12H [facility] Stop: 07/27/18 22:14 Last Admin: 05/31/18 09:19 Dose: 15 ml Ferrous Sulfate (Iron) 450 mg GT Q8H [facility] Stop: 07/28/18 08:59 Last Admin: 05/31/18 09:20 Dose: 450 mg Guaifenesin (Robitussin) 200 mg PO Q4HR PRN PRN Reason: Cough or Congestion Stop: 07/27/18 22:12 Last Admin: 05/29/18 20:38 Dose: 200 mg Cefepime HCl 1 gm/ Dextrose 50 mls @ 100 mls/hr IV Q24H [facility] Stop: 07/27/18 22:44 Last Admin: 05/31/18 00:11 Dose: 100 mls/hr Dextrose/Sodium Chloride (D5-0.45ns) 1,000 mls @ 50 mls/hr IV .Q20H [facility] Stop: 07/28/18 15:14 Last Admin: 05/30/18 08:57 Dose: 50 mls/hr Vancomycin HCl 0.75 gm/ Sodium (Chloride) 250 mls @ 165 mls/hr IV Q12H [facility] Stop: 07/30/18 00:59 Last Infusion: 05/31/18 07:14 Dose: Infused Insulin Aspart (Novolog Insulin Sliding Scale) 0 units SUBQ DAILY [facility]; Protocol Stop: 07/28/18 08:59 Last Admin: 05/31/18 10:03 Dose: 2 units Ipratropium [place] (Atrovent Neb 0.5mg/2.5ml) 0.5 mg HHN QIDRT [facility] Stop: 07/28/18 06:59 Last Admin: 05/31/18 10:16 Dose: 0.5 mg Lactobacillus Rhamnosus (Culturelle 15b) 1 each PO DAILY [facility] Stop: 07/29/18 14:59 Last Admin: 05/31/18 09:20 Dose: 1 each Lidocaine (Lidoderm 5% Patch) 1 patch TD DAILY [facility] Stop: 07/28/18 08:59 Last Admin: 05/31/18 10:04 Dose: 1 patch Magnesium Hydroxide (Milk Of Magnesia) 30 ml GT Q12H PRN PRN Reason: Constipation Stop: 07/27/18 22:10 Metoprolol Tartrate (Lopressor) 25 mg GT Q12H [facility] Stop: 07/27/18 22:14 Last Admin: 05/30/18 21:21 Dose: 25 mg Miscellaneous (Diclofenac Sodium [Diclo Gel]) 1 % TP QID [facility] Stop: 07/28/18 08:59 Last Admin: 05/29/18 16:28 Dose: Not Given Miscellaneous (Vancomycin Iv Per Pharmacy) 1 ea PRN [facility] Stop: 07/27/18 22:14 Miscellaneous (Probiotic Screen) 1 ea PRN PRN PRN Reason: PROTOCOL Stop: 07/29/18 14:45 Multivitamins/Minerals (Theragran M) 15 ml GT DAILY [facility] Stop: 07/28/18 08:59 Last Admin: 05/31/18 09:21 Dose: 15 ml Ondansetron HCl (Zofran) 4 mg IV Q8H PRN PRN Reason: Nausea / Vomiting Stop: 07/27/18 22:12 Pantoprazole Sodium (Protonix) 40 mg GT Q24H [facility] Stop: 07/28/18 08:59 Last Admin: 05/31/18 09:21 Dose: 40 mg Zolpidem Tartrate (Ambien) 10 mg PO HS PRN PRN Reason: Insomnia Stop: 07/27/18 22:12 General: weak, alert HEENT: NC/AT, PERRLA Neck: + trach Lungs: ronchi Cardiovascular: RRR, Normal S1, Normal S2, without murmur Abdomen: soft, non-tender, non-distended Extremities: excoriation Neurological: alert Internal Medicine Assmt/Plan - Assessment Assessment: left lower lobe pna sepsis acute respiratory failure asthma dyslipidemia tracheostomy status leukocytosis acute renal insufficiency r/o dehydration mild protein calorie malnutrition - Plan Plan: continue in-line respiratory treatments suction patient as needed aspiration precautions continue ivabx continue ivf for hydration continue current plan of care Nutritional Asmnt/Malnutr-PDOC - Dietary Evaluation Malnutrition Findings (Please click <Entered> for more info): Nutritional Asmnt/Malnutrition Start: 05/29/18 12: 20 Text: Status: Complete Freq: Protocol: Document 05/29/18 12:20 MMNUHA (Rec: 05/29/18 12:34 MMNUHA JEAN- [email or web address]) Nutritional Asmnt/Malnutrition Patient General Information Nutritional Screening High Risk Diagnosis Pneumonia, Sepsis Pertinent Medical Hx/Surgical Hx CHRONIC RESPIRATORY FAILURE, PNEUMONIA, SEPSIS, MUSCLE WEAKNESS, LEFT ARM PAIN, TRACHEOSTOMY, GASTROSTOMY WITH INFECTION, ATRIAL FIBRILLATION, COPD, DYSARTHRIA , ANARTHRIA, ABDOMINAL WALL CELLULITIS, HYPERCHOLESTEROLEMIA, ABNORMAL GAIT AND MOBILITY, DYSYPHAGIA Subjective Information Per nursing notes, patient is tolerating current tube feeding regimen without gastric residuals. Current tube feeding regimen provides 1600 ml volume, 1920 kcal, 96 gm protein, 1288 ml free water . Patient visually seen with trach present; able to answer basic quesions with gestures and shaking head. Mild/ moderate temporal wasting noted. Verified tube feeding Glucerna, however TF was running at 70ml/hr rather than goal of 80ml/hr. Current Diet Order/ Nutrition Support Glucerna 1.2 at 80 ml/hr x 20 hours (12p-8a). Patient / S.O Not Indicated Pertinent Medications maalox, vitamin C, lipitor, D5 -0.45Ns, Iron, Novolog, MOM, Abx, Theragran, zofran, protonix Pertinent Labs (05/28) Na 135, BUN 32, Albumin 3.5 Nutritional Hx/Data Height 5 ft 6 in Height (Calculated Centimeters) 167.6 Current Weight (lbs) 138 lb Weight (Calculated Kilograms) 62.6 Weight (Calculated Grams) 93538.7 [place] Body Weight 142 % [place] Body Weight 97 Body Mass Index (BMI) 22.2 Recent Weight Change No Weight Status Approriate GI Symptoms GI Symptoms None Last BM none noted since admission Difficult in: Swallowing Food Allergies No Cultural/Ethnic/Yarsanism Belief None indicated Usual diet at home Tube feeding Skin Integrity/Comment: Ivan 17, intact Estimated Nutritional Goals BEE in Kcals: Using Current wt Calories/Kcals/Kg 25-30 kcal/kg using CBW 62.7kg Kcals Calculated 9150-5491 kcal/day Protein: Using Current wt Protein g/k.2-1.5 gm/kg - Sepsis/ pneumonia Protein Calculated 75-95 gm/day Fluid: ml 7448-5962 ml/day (1 ml/kcal) Nutritional Problem 1. Problem Problem No nutrition diagnosis at this time Intervention/Recommendation Comments 1. Continue current tube feeding regimen as toelrated by patient as it is adequate to meet nutrient needs. Make sure tube feeding is running at goal rate of 80ml/hr. Expected Outcomes/Goals Expected Outcomes/Goals Tolerates tube feeding at goal rate to meet 100% of nutrient needs, weight stable, nutrition related labs WNL F/U in 3-5 days as MR 06/01-11
--- NOTE | 2018-05-31 11:56 | Diagnostic Imaging Report ---
Portable chest x-ray HISTORY: Pneumonia Compared with prior exam of May 28, 2018, there remains increased density in the left lower lobe with partial obscuration the left hemidiaphragm. Consolidation and/or atelectasis cannot be excluded. In addition, there is density noted along the right hemidiaphragm. The contour suggests this may be related to focal eventration. Follow-up recommended. IMPRESSION: 1. New density along the right hemidiaphragm that may be related to focal eventration. However, a follow-up exam is recommended. 2. Persistent density within the left lower lobe. Changes may be chronic. However, pneumonia and/or atelectasis cannot be excluded.
[2018-05-31] MEDS: Meropenem 1 GM in Sodium Chloride 0.9% 100 ML IV SCH ×2 (14:26→21:55)
[2018-06-01] MEDS: Ferrous Sulfate 300 MG/5 ML UDC GT SCH ×3 (02:51→16:34)
[2018-06-01] MEDS: Albuterol Nebulizer 2.5mg/3mL HHN SCH ×4 (07:07→19:52)
[2018-06-01] MEDS: Ipratropium Neb 0.5 mg/2.5 mL UD HHN SCH ×4 (07:07→19:52)
[2018-06-01 07:09] LABS: % EOSINOPHILS 0.2 % (0.0-5.0); % LYMPHOCYTES 10.1 % (20.0-50.0); % MONOCYTES 5.7 % (2.0-10.0); ANION GAP 8.9 (7.0-16.0); BUN - UREA NITROGEN 18 mg/dL (7-25); CALCIUM SERUM 9.1 mg/dL (8.6-10.3); CHLORIDE 104 mEq/L (98-107); CREATININE - SERUM 0.6 mg/dL (0.7-1.3); GLUCOSE 131 mg/dL (70-105); HEMATOCRIT 29.9 % (41.0-60); HEMOGLOBIN 10.3 gm/dL (12-16); LYMPHOCYTE ABSOLUTE 1.2 Th/cmm (1.5-3.0); MEAN CELL VOLUME 87.9 fl (80-99); MEAN CORPUSCULAR HEMOGLOBIN 30.2 pg (27.0-31.0); MEAN CORPUSCULAR HGB CONC 34.3 pg (28.0-36.0); MEAN PLATELET VOLUME 9.7 fl; MONOCYTE ABSOLUTE 0.7 Th/cmm (0.3-1.0); NEUTROPHILE ABSOLUTE 10.4 Th/cmm (1.8-8.0); PLATELET COUNT 385 Th/cmm (150-400); POTASSIUM SERUM 3.9 mEq/L (3.5-5.1); RED CELL DISTRIBUTION WIDTH 15.4 % (11.5-20.0); SODIUM SERUM 136 mEq/L (136-145); WHITE BLOOD COUNT 12.3 Th/cmm (4.8-10.8)
[2018-06-01] MEDS: Multivitamin w/ Minerals 15 mL UDC GT SCH (09:01)
[2018-06-01] MEDS: Pantoprazole 40 mg/Packet GT SCH (09:02)
[2018-06-01] MEDS: Lactobacillus Rhamnosus GG 15 Billion CFU CAP.SPRINK PO SCH (09:02)
[2018-06-01] MEDS: Lidocaine 5% Patch TD SCH (09:03)
[2018-06-01] MEDS: INSULIN ASPART SLIDING SCALE 100 UNITS/ML UNIT SUBQ SCH (09:08)
[2018-06-01] MEDS: Meropenem 1 GM in Sodium Chloride 0.9% 100 ML IV SCH (09:09)
[2018-06-01] MEDS: Chlorhexidine Gluconate 0.12% 480mL Bottle MM SCH (09:15)
--- NOTE | 2018-06-01 11:56 | Internal Medicine Prog Note ---
Internal Medicine Subjective - Subjective Service Date: 06/01/18 Patient is:: awake, verbal Patient Complaints of:: congestion Per staff patient has:: tolerating meds Internal Medicine Objective - Results Result Diagrams: 06/01/18 05:30 06/01/18 05:30 Recent Labs: Laboratory Last Values WBC 12.3 Th/cmm (4.8-10.8) H 06/01/18 05:30 Corrected WBC (auto) Th/cmm 05/31/18 05:35 RBC 3.40 Mil/cmm (3.80-5.80) L 06/01/18 05:30 Hgb 10.3 gm/dL (12-16) L 06/01/18 05:30 Hct 29.9 % (41.0-60) L 06/01/18 05:30 MCV 87.9 fl (80-99) 06/01/18 05:30 MCH 30.2 pg (27.0-31.0) 06/01/18 05:30 MCHC Differential 34.3 pg (28.0-36.0) 06/01/18 05:30 RDW 15.4 % (11.5-20.0) 06/01/18 05:30 Plt Count 385 Th/cmm (150-400) 06/01/18 05:30 MPV 9.7 fl 06/01/18 05:30 Add Manual Diff YES 05/28/18 19:35 Neutrophils % 84.0 % (40.0-80.0) H 06/01/18 05:30 Band Neutrophils % 7 % (0-10) 05/28/18 19:35 Lymphocytes % 10.1 % (20.0-50.0) L 06/01/18 05:30 Monocytes % 5.7 % (2.0-10.0) 06/01/18 05:30 Eosinophils % 0.2 % (0.0-5.0) 06/01/18 05:30 Basophils % 0.0 % (0.0-2.0) 06/01/18 05:30 Neutrophils (Manual) 82 % (40-80) H 05/28/18 19:35 Lymphocytes 6 % (20-50) L 05/28/18 19:35 Monocytes 5 % (2-10) 05/28/18 19:35 Sodium 136 mEq/L (136-145) 06/01/18 05:30 Potassium 3.9 mEq/L (3.5-5.1) 06/01/18 05:30 Chloride 104 mEq/L (98-107) 06/01/18 05:30 Carbon Dioxide 27.0 mEq/L (21.0-31.0) 06/01/18 05:30 Anion Gap 8.9 (7.0-16.0) 06/01/18 05:30 BUN 18 mg/dL (7-25) 06/01/18 05:30 Creatinine 0.6 mg/dL (0.7-1.3) L 06/01/18 05:30 Est GFR ( Amer) TNP 06/01/18 05:30 Est GFR (Non-Af Amer) TNP 06/01/18 05:30 BUN/Creatinine Ratio 30.0 06/01/18 05:30 Glucose 131 mg/dL (70-105) H 06/01/18 05:30 POC Glucose 143 MG/DL (70 - 105) H 06/01/18 09:07 Whole Bld Lactic Acid 1.51 mmol/L (0.60-1.99) 05/28/18 21:35 Calcium 9.1 mg/dL (8.6-10.3) 06/01/18 05:30 Total Bilirubin 0.3 mg/dL (0.3-1.0) 05/28/18 19:35 AST 22 U/L (13-39) 05/28/18 19:35 ALT 10 U/L (7-52) 05/28/18 19:35 Alkaline Phosphatase 78 U/L (34-104) 05/28/18 19:35 Total Protein 8.7 gm/dL (6.0-8.3) H 05/28/18 19:35 Albumin 3.5 gm/dL (4.2-5.5) L 05/28/18 19:35 Globulin 5.2 gm/dL 05/28/18 19:35 Albumin/Globulin Ratio 0.7 (1.0-1.8) L 05/28/18 19:35 TSH 2.08 uIU/ml (0.34-5.60) 05/28/18 19:35 Vancomycin Trough 9.1 ug/mL (5-10) 05/30/18 08:00 RPR NONREACTIVE (NONREACTIVE) 05/28/18 19:35 - Physical Exam Vitals and I&O: Vital Signs Temp 98 F 06/01/18 08:00 Pulse 64 06/01/18 11:05 Resp 18 06/01/18 11:05 BP 121/67 06/01/18 09:15 Pulse Ox 100 06/01/18 11:05 Intake & Output 05/31/18 06/01/18 06/01/18 18:59 06:59 18:59 Intake Total 500 2110 Balance 500 2110 Weight (lbs) 151 lb Intake: Intake, IV Amount 500 200 Meropenem 1 gm In Sodium 200 Chloride 0.9% 100 ml @ 100 mls/hr IV Q12HR [facility] Rx#:[id number] Vancomycin HCl 0.75 gm In 500 Sodium Chloride 0.9% 250 ml @ 165 mls/hr IV Q12H [facility] Rx#:[id number] Tube Feeding 1710 Other 200 Other: # Voids 3 # Bowel Movements 0 Stool Characteristics Formed Brown Weight Source Bedscale Active Medications: Current Medications Acetaminophen (Tylenol) 650 mg GT Q6HR PRN PRN Reason: MILD PAIN 1-3 OR TEMP >101 Stop: 07/27/18 22:10 Last Admin: 05/31/18 09:35 Dose: 650 mg Acetaminophen (Tylenol) 650 mg PO Q4H PRN PRN Reason: Mild Pain 1-3/ Fever above 101 Stop: 07/27/18 22:12 Acetaminophen/Hydrocodone Bitart ([place] 5mg/325mg) 1 tab PO Q4H PRN PRN Reason: Pain (Severe) 8-10 Stop: 07/27/18 22:12 Al Hydrox/Mg Hydrox/Simethicone (Maalox) 30 ml PO Q6H PRN PRN Reason: Dyspepsia Stop: 07/27/18 22:12 Albuterol Sulfate (Albuterol 2.5mg/3ml Neb Ud) 2.5 mg HHN QIDRT [facility] Stop: 07/28/18 06:59 Last Admin: 06/01/18 11:04 Dose: 2.5 mg Ascorbic Acid (Vitamin C) 500 mg GT DAILY [facility] Stop: 07/28/18 08:59 Last Admin: 06/01/18 09:02 Dose: 500 mg Atorvastatin Calcium (Lipitor) 40 mg GT HS [facility] Stop: 07/28/18 20:59 Last Admin: 05/31/18 21:54 Dose: 40 mg Chlorhexidine Gluconate (Peridex) 15 ml MM Q12H [facility] Stop: 07/27/18 22:14 Last Admin: 06/01/18 09:15 Dose: 15 ml Ferrous Sulfate (Iron) 450 mg GT Q8H [facility] Stop: 07/28/18 08:59 Last Admin: 06/01/18 09:02 Dose: 450 mg Guaifenesin (Robitussin) 200 mg PO Q4HR PRN PRN Reason: Cough or Congestion Stop: 07/27/18 22:12 Last Admin: 05/29/18 20:38 Dose: 200 mg Dextrose/Sodium Chloride (D5-0.45ns) 1,000 mls @ 50 mls/hr IV .Q20H [facility] Stop: 07/28/18 15:14 Last Admin: 05/30/18 08:57 Dose: 50 mls/hr Vancomycin HCl 0.75 gm/ Sodium (Chloride) 250 mls @ 165 mls/hr IV Q12H [facility] Stop: 07/30/18 00:59 Last Admin: 06/01/18 02:50 Dose: 165 mls/hr Meropenem 1 gm/ Sodium (Chloride) 100 mls @ 100 mls/hr IV Q12HR [facility] Stop: 07/30/18 13:14 Last Admin: 06/01/18 09:09 Dose: 100 mls/hr Insulin Aspart (Novolog Insulin Sliding Scale) 0 units SUBQ DAILY [facility]; Protocol Stop: 07/28/18 08:59 Last Admin: 06/01/18 09:08 Dose: 2 units Ipratropium [place] (Atrovent Neb 0.5mg/2.5ml) 0.5 mg HHN QIDRT [facility] Stop: 07/28/18 06:59 Last Admin: 06/01/18 11:04 Dose: 0.5 mg Lactobacillus Rhamnosus (Culturelle 15b) 1 each PO DAILY [facility] Stop: 07/29/18 14:59 Last Admin: 06/01/18 09:02 Dose: 1 each Lidocaine (Lidoderm 5% Patch) 1 patch TD DAILY [facility] Stop: 07/28/18 08:59 Last Admin: 06/01/18 09:03 Dose: 1 patch Magnesium Hydroxide (Milk Of Magnesia) 30 ml GT Q12H PRN PRN Reason: Constipation Stop: 07/27/18 22:10 Metoprolol Tartrate (Lopressor) 25 mg GT Q12H [facility] Stop: 07/27/18 22:14 Last Admin: 06/01/18 09:15 Dose: 25 mg Miscellaneous (Diclofenac Sodium [Diclo Gel]) 1 % TP QID [facility] Stop: 07/28/18 08:59 Last Admin: 05/29/18 16:28 Dose: Not Given Miscellaneous (Vancomycin Iv Per Pharmacy) 1 ea MC PRN [facility] Stop: 07/27/18 22:14 Miscellaneous (Probiotic Screen) 1 ea PRN PRN PRN Reason: PROTOCOL Stop: 07/29/18 14:45 Multivitamins/Minerals (Theragran M) 15 ml GT DAILY [facility] Stop: 07/28/18 08:59 Last Admin: 06/01/18 09:01 Dose: 15 ml Ondansetron HCl (Zofran) 4 mg IV Q8H PRN PRN Reason: Nausea / Vomiting Stop: 07/27/18 22:12 Pantoprazole Sodium (Protonix) 40 mg GT Q24H [facility] Stop: 07/28/18 08:59 Last Admin: 06/01/18 09:02 Dose: 40 mg Zolpidem Tartrate (Ambien) 10 mg PO HS PRN PRN Reason: Insomnia Stop: 07/27/18 22:12 General: weak, alert HEENT: NC/AT, PERRLA Neck: + trach Lungs: ronchi Cardiovascular: RRR, Normal S1, Normal S2, without murmur Abdomen: soft, non-tender, non-distended Extremities: excoriation Neurological: alert Internal Medicine Assmt/Plan - Assessment Assessment: sputum culture positive for klebsiella pneumoniae and proteus mirabilis left lower lobe pna sepsis acute respiratory failure asthma dyslipidemia tracheostomy status leukocytosis acute renal insufficiency r/o dehydration mild protein calorie malnutrition - Plan Plan: LTAC EVAL continue in-line respiratory treatments suction patient as needed aspiration precautions continue ivabx continue ivf for hydration continue current plan of care Nutritional Asmnt/Malnutr-PDOC - Dietary Evaluation Malnutrition Findings (Please click <Entered> for more info): Nutritional Asmnt/Malnutrition Start: 05/29/18 12: 20 Text: Status: Complete Freq: Protocol: Document 10/06/18 12:20 TEJ (Rec: 05/29/18 12:34 TEJ MIRANDA- [email or web address]) Nutritional Asmnt/Malnutrition Patient General Information Nutritional Screening High Risk Diagnosis Pneumonia, Sepsis Pertinent Medical Hx/Surgical Hx CHRONIC RESPIRATORY FAILURE, PNEUMONIA, SEPSIS, MUSCLE WEAKNESS, LEFT ARM PAIN, TRACHEOSTOMY, GASTROSTOMY WITH INFECTION, ATRIAL FIBRILLATION, COPD, DYSARTHRIA , ANARTHRIA, ABDOMINAL WALL CELLULITIS, HYPERCHOLESTEROLEMIA, ABNORMAL GAIT AND MOBILITY, DYSYPHAGIA Subjective Information Per nursing notes, patient is tolerating current tube feeding regimen without gastric residuals. Current tube feeding regimen provides 1600 ml volume, 1920 kcal, 96 gm protein, 1288 ml free water . Patient visually seen with trach present; able to answer basic quesions with gestures and shaking head. Mild/ moderate temporal wasting noted. Verified tube feeding Glucerna, however TF was running at 70ml/hr rather than goal of 80ml/hr. Current Diet Order/ Nutrition Support Glucerna 1.2 at 80 ml/hr x 20 hours (12p-8a). Patient / S.O Not Indicated Pertinent Medications maalox, vitamin C, lipitor, D5 -0.45Ns, Iron, Novolog, MOM, Abx, Theragran, zofran, protonix Pertinent Labs (05/28) Na 135, BUN 32, Albumin 3.5 Nutritional Hx/Data Height 5 ft 6 in Height (Calculated Centimeters) 167.6 Current Weight (lbs) 138 lb Weight (Calculated Kilograms) 62.6 Weight (Calculated Grams) 49895.7 [place] Body Weight 142 % [place] Body Weight 97 Body Mass Index (BMI) 22.2 Recent Weight Change No Weight Status Approriate GI Symptoms GI Symptoms None Last BM none noted since admission Difficult in: Swallowing Food Allergies No Cultural/Ethnic/Restorationism Belief None indicated Usual diet at home Tube feeding Skin Integrity/Comment: Ivan 17, intact Estimated Nutritional Goals BEE in Kcals: Using Current wt Calories/Kcals/Kg 25-30 kcal/kg using CBW 62.7kg Kcals Calculated 1728-9273 kcal/day Protein: Using Current wt Protein g/k.2-1.5 gm/kg - Sepsis/ pneumonia Protein Calculated 75-95 gm/day Fluid: ml 6730-9796 ml/day (1 ml/kcal) Nutritional Problem 1. Problem Problem No nutrition diagnosis at this time Intervention/Recommendation Comments 1. Continue current tube feeding regimen as toelrated by patient as it is adequate to meet nutrient needs. Make sure tube feeding is running at goal rate of 80ml/hr. Expected Outcomes/Goals Expected Outcomes/Goals Tolerates tube feeding at goal rate to meet 100% of nutrient needs, weight stable, nutrition related labs WNL F/U in 3-5 days as MR 06/01-11
[2018-06-01] MEDS: D5-0.45NS 1,000 ML IV SCH (16:34)
== END 2018-06-01 20:29 | DRG 871 ==
LOC: ER 18:43 → TELE 21:20
PROVIDERS: ADMIT Internal Medicine; ATTEND Internal Medicine
DX: A41.9 Sepsis, unspecified organism (principal); J96.20 Acute and chronic respiratory failure, unspecified whether with hypoxia or hypercapnia; J15.0 Pneumonia due to Klebsiella pneumoniae; E44.1 Mild protein-calorie malnutrition; E78.5 Hyperlipidemia, unspecified; E86.0 Dehydration; J44.9 Chronic obstructive pulmonary disease, unspecified; R13.10 Dysphagia, unspecified; I48.91 Unspecified atrial fibrillation; N28.9 Disorder of kidney and ureter, unspecified; E11.9 Type 2 diabetes mellitus without complications; Z93.1 Gastrostomy status; Z68.24 Body mass index [BMI] 24.0-24.9, adult; Z93.0 Tracheostomy status; Z87.01 Personal history of pneumonia (recurrent); Z87.891 Personal history of nicotine dependence
CPT/HCPCS: 36415-UA; 71045-TC; 80048-TC; 80053-TC; 80202-TC; 82948-90; 83605; 84443-TC; 85007-TC; 85025-TC; 86592-TC; 87070; 87086-90; 90779; 93005; 94760; J0692; J1815; J2185; J2543; J3370; J7613; Z7610

== ENCOUNTER 2018-08-09 18:05 | Inpatient (IN) | payer MEDICARE, OTHER ==
--- NOTE | 2018-08-09 19:47 | ED Physician Chart ---
ED Chief Complaint/HPI - Patient Information Allergies:: Allergies Allergy/AdvReac Type Severity Reaction Status Date / Time No Known Allergies Allergy Verified 05/28/18 19:04 Vitals:: Vital Signs - 8 hr 08/09/18 19:12 Temp 98.5 F HR 107 RR 17 BP 149/72 O2 Sat % 96 Family Medical History - Family Member Mother History Unknown: Yes Ethnicity: Unknown Living Status: Unknown ED Assessment - Assessment General Assessment: gtube malfunction unable to push fluids according to the [facility] ED Septic Shock - . Is Septic Shock (SBP<90, OR Lactate>4 mmol\L) present?: No - <6hrs of presentation: Vital Signs: Vital Signs - 8 hr 08/09/18 19:12 Temp 98.5 F HR 107 RR 17 BP 149/72 O2 Sat % 96 ED Reassessment (Disposition) - Reassessment Reassessment Condition:: Unchanged - Diagnosis Diagnosis:: g tube malfunction - Patient Disposition Discharge/Transfer:: Acute Care w/in this hosp Condition at Disposition:: Stable
[2018-08-09] MEDS ORDERED: Diatrizoate Meglumine/Diatri 30 mL Sol ONE (19:53)
[2018-08-09 20:12] LABS: HEMATOCRIT 39.7 % (41.0-60); HEMOGLOBIN 12.9 gm/dL (12-16); MEAN CELL VOLUME 84.9 fl (80-99); MEAN CORPUSCULAR HEMOGLOBIN 27.5 pg (27.0-31.0); MEAN CORPUSCULAR HGB CONC 32.3 pg (28.0-36.0); MEAN PLATELET VOLUME 10.4 fl; PLATELET COUNT 379 Th/cmm (150-400); RED BLOOD COUNT 4.68 Mil/cmm (3.80-5.80); RED CELL DISTRIBUTION WIDTH 15.6 % (11.5-20.0)
[2018-08-09 20:19] LABS: WHITE BLOOD COUNT 25.1 Th/cmm (4.8-10.8)
[2018-08-09 20:27] LABS: BAND NEUTROPHILE 6 % (0-10); LYMPHOCYTE 5 % (20-50); MONOCYTE 5 % (2-10); NEUTROPHILS 84 % (40-80)
[2018-08-09 20:53] LABS: ALB/GLOB RATIO 0.7 (1.0-1.8); ALBUMIN 3.7 gm/dL (4.2-5.5); ALKALINE PHOSPHATASE 78 U/L (34-104); ANION GAP 15.4 (7.0-16.0); BILIRUBIN,TOTAL 0.7 mg/dL (0.3-1.0); BUN - UREA NITROGEN 26 mg/dL (7-25); CARBON DIOXIDE 26.9 mEq/L (21.0-31.0); CHLORIDE 101 mEq/L (98-107); CREATININE - SERUM 0.7 mg/dL (0.7-1.3); GLUCOSE 103 mg/dL (70-105); POTASSIUM SERUM 5.3 mEq/L (3.5-5.1); SGOT 37 U/L (13-39); SGPT/ALT 18 U/L (7-52); SODIUM SERUM 138 mEq/L (136-145); TOTAL PROTEIN,SERUM 8.9 gm/dL (6.0-8.3)
[2018-08-09] MEDS ORDERED: Sodium Chloride 0.9% 1,000 ML IV ONE (21:54)
[2018-08-09] MEDS ORDERED: cefTRIAXone 2 GM in Sodium Chloride 0.9% 100 ML IV ONE ×2 (21:56→22:42)
[2018-08-09] MEDS ORDERED: GLUCAGON HCl 1 MG KIT IM PRN (23:26)
[2018-08-09] MEDS ORDERED: Albuterol/Ipratropium Neb 3 ML AERS HHN PRN (23:26)
[2018-08-09] MEDS ORDERED: Magnesium Hydroxide (MOM) 30 mL UDC GT PRN (23:26)
[2018-08-09] MEDS ORDERED: Maalox 30 mL Cup GT PRN (23:26)
[2018-08-09] MEDS ORDERED: guaiFENesin 200 MG/10 ML UDC PO PRN (23:28)
[2018-08-09] MEDS ORDERED: Hydrocodone/APAP 5mg/325mg Tab PO PRN (23:28)
[2018-08-09] MEDS ORDERED: Non-Formulary Item 1 EA (Ferrous Sulfate [Ferrous Sulfate] 7.5 ML) GT SCH (23:30)
[2018-08-10 00:44] VITALS: BP 147/79
[2018-08-10] MEDS: D5-0.45NS 1,000 ML IV SCH ×2 (02:38→23:21)
[2018-08-10 04:58] LABS: % BASOPHILS 0.1 % (0.0-2.0); % EOSINOPHILS 0.2 % (0.0-5.0); % LYMPHOCYTES 7.8 % (20.0-50.0); % MONOCYTES 12.2 % (2.0-10.0); % NEUTROPHILS 79.7 % (40.0-80.0); HEMATOCRIT 35.4 % (41.0-60); HEMOGLOBIN 11.6 gm/dL (12-16); LYMPHOCYTE ABSOLUTE 1.4 Th/cmm (1.5-3.0); MEAN CELL VOLUME 85.7 fl (80-99); MEAN CORPUSCULAR HEMOGLOBIN 28.2 pg (27.0-31.0); MEAN CORPUSCULAR HGB CONC 32.9 pg (28.0-36.0); MONOCYTE ABSOLUTE 2.2 Th/cmm (0.3-1.0); NEUTROPHILE ABSOLUTE 14.4 Th/cmm (1.8-8.0); PLATELET COUNT 361 Th/cmm (150-400); RED BLOOD COUNT 4.14 Mil/cmm (3.80-5.80); RED CELL DISTRIBUTION WIDTH 15.9 % (11.5-20.0)
[2018-08-10 06:31] LABS: BAND NEUTROPHILE 2 % (0-10); LYMPHOCYTE 12 % (20-50); NEUTROPHILS 76 % (40-80)
[2018-08-10 06:32] LABS: MONOCYTE 10 % (2-10)
[2018-08-10] MEDS: Albuterol/Ipratropium Neb 3 ML AERS HHN SCH ×4 (06:59→18:11)
[2018-08-10] MEDS ORDERED: Ipratropium Neb 0.5 mg/2.5 mL UD IH SCH (07:00)
[2018-08-10] MEDS: Budesonide 0.5 Mg/2 mL Ud HHN SCH ×2 (07:05→18:11)
[2018-08-10 07:30] LABS: ANION GAP 12.3 (7.0-16.0); BUN - UREA NITROGEN 21 mg/dL (7-25); CALCIUM SERUM 9.4 mg/dL (8.6-10.3); CHLORIDE 107 mEq/L (98-107); CREATININE - SERUM 0.7 mg/dL (0.7-1.3); GLUCOSE 119 mg/dL (70-105); POTASSIUM SERUM 4.3 mEq/L (3.5-5.1); SODIUM SERUM 142 mEq/L (136-145)
[2018-08-10] MEDS ORDERED: ARFORMOTEROL TARTRATE HHN SCH (09:00)
--- NOTE | 2018-08-10 09:00 | Diagnostic Imaging Report ---
KUB single view HISTORY: G-tube dislodgment COMPARISON: None FINDINGS: Probably a single KUB image was obtained. A G-tube is noted. Copious stool is noted. Post surgical changes in the pelvis are noted. Degenerative changes of the spine are noted. IMPRESSION: Only a single KUB image was obtained demonstrating a G-tube. Please perform dedicated upper GI with Gastrografin for G-tube placement if necessary. Copious stool.
[2018-08-10] MEDS: Multivitamin w/ Minerals 15 mL UDC GT SCH (09:41)
[2018-08-10] MEDS: Ferrous Sulfate 300 MG/5 ML UDC GT SCH ×2 (09:41→16:49)
[2018-08-10] MEDS: Lactobacillus Rhamnosus GG 15 Billion CFU CAP.SPRINK GT SCH (09:41)
[2018-08-10] MEDS: Lidocaine 5% Patch TD SCH (10:23)
[2018-08-10 10:26] LABS: URINE SOURCE CLEAN C
[2018-08-10 10:45] LABS: URINE BILIRUBIN NEGATIVE (NEGATIVE); URINE BLOOD NEGATIVE (NEGATIVE); URINE GLUCOSE (UA) NEGATIVE (NEGATIVE); URINE KETONE NEGATIVE (NEGATIVE); URINE LEUKOCYTE ESTERASE NEGATIVE (NEGATIVE); URINE NITRATE NEGATIVE (NEGATIVE); URINE PROTEIN NEGATIVE (NEGATIVE); URINE UROBILINOGEN 0.2 E.U./dL (0.2 - 1.0)
[2018-08-10 10:49] LABS: URINE CLARITY CLEAR (CLEAR); URINE COLOR YELLOW; URINE MICROSCOPIC INDICATED? NO
[2018-08-10] MEDS ORDERED: Diatrizoate Meglumine/Diatri 30 mL Sol PO ONE (16:29)
--- NOTE | 2018-08-10 17:18 | History and Physical ---
History of Present Illness - HPI Chief Complaint: abnormal lab HPI: This is a 83-year old male who is a half-way resident admitted to the medsurg unit due to gt malfunction. In the ER patients patients wbc elevated and was given empiric ivabx. No reports of any fevers at the SNF. Patient gt was replaced this morning at bedside by GI. Vital Signs: Last Vital Signs Temp 97.0 F 08/10/18 15:23 Pulse 71 08/10/18 15:23 Resp 18 08/10/18 15:23 BP 121/60 08/10/18 15:23 Pulse Ox 97 08/10/18 15:23 Past Medical History Other History: asthma copd dyslipidemia dyslipidemia acute respiratory failure pna Family Medical History - Family Member Mother History Unknown: Yes Ethnicity: Unknown Living Status: Unknown Social History Smoke: No Alcohol: None Drugs: None Lives: [facility] - Medications Home Medications: Home Medication Medication Instructions Recorded Type Acetaminophen [Tylenol] 650 mg GT Q6HR PRN 05/28/18 History Ascorbic Acid [Vitamin C] 500 mg GT DAILY 05/28/18 History Atorvastatin Calcium [Lipitor] 40 mg GT HS 05/28/18 History Ferrous Sulfate 7.5 ml GT Q8H 05/28/18 History Insulin Human Regular [NovoLIN R*] See Protocol SUBQ DAILY 05/28/18 History Lidocaine 5% Patch [Lidoderm 5% 1 patch TP DAILY 05/28/18 History Patch] Magnesium Hydroxide [Milk of 30 ml GT Q12H PRN 05/28/18 History Magnesia] Metoprolol Tartrate 25 mg GT Q12H 05/28/18 History Multivitamin w/ Minerals 5 ml GT DAILY 05/28/18 History [Theragran M] Al Hyd/Mg Hyd/Simethicone [Maalox] 30 ml GT Q6H PRN 08/09/18 History Albuterol/Ipratropium Neb [Duoneb 3 ml HHN Q6HR PRN 08/09/18 History Neb] Arformoterol Tartrate [Brovana] 1 vial HHN BID 08/09/18 History Budesonide [Pulmicort] 0.5 mg IH BID 08/09/18 History Dextrose 50% [D50w] 50 ml IV DAILY PRN 08/09/18 History GLUCAGON HCl [Glucagen] 1 mg IM DAILY PRN 08/09/18 History Lactobacillus Rhamnosus GG 15B 1 each GT DAILY 08/09/18 History [Culturelle 15B] cloNIDine HCl [Catapres] 0.1 mg GT Q6H PRN 08/09/18 History - Allergies Allergies/Adverse Reactions: Allergies Allergy/AdvReac Type Severity Reaction Status Date / Time No Known Allergies Allergy Verified 05/28/18 19:04 Review of Systems - Review of Systems Constitutional: Report: No Significant Eyes: Report: No Significant ENT: Report: No Significant Respiratory: Report: No Significant Cardiovascular: Report: No Significant Neurological: Report: No Significant Physical Exam - Physical Exam HEENT: Report: Ears Nose Throat within normal limits Neck: Report: Within normal limits Cardiovascular Systems: Report: +s1/s2 noted, Regular, Rate and Rhythm Respiratory: Report: Breath Sounds are within normal limits, Clear to Auscultation of lung haskins Abdomen: Report: Non-tender to palpation Back: Report: Inspection of back is within normal limits. Extremities: Report: Non-tender to palpation. Skin: Report: Warm, Dry Neuro/Psych: Report: Mood affect is within normal limits - Lab Results All Lab Results last 24 hours: Laboratory Results - last 24 hr 08/09/18 08/09/18 08/09/18 20:00 20:00 20:30 WBC 25.1 H* D RBC 4.68 Hgb 12.9 Hct 39.7 L MCV 84.9 MCH 27.5 MCHC Differential 32.3 RDW 15.6 Plt Count 379 MPV 10.4 Add Manual Diff YES Neutrophils % Band Neutrophils % 6 Lymphocytes % Monocytes % Eosinophils % Basophils % Neutrophils (Manual) 84 H Lymphocytes 5 L Monocytes 5 Sodium 138 Potassium 5.3 H Chloride 101 Carbon Dioxide 26.9 Anion Gap 15.4 BUN 26 H Creatinine 0.7 Est GFR ( Amer) TNP Est GFR (Non-Af Amer) TNP BUN/Creatinine Ratio 37.1 Glucose 103 Whole Bld Lactic Acid 2.07 H* Calcium 10.0 Total Bilirubin 0.7 AST 37 ALT 18 Alkaline Phosphatase 78 B-Natriuretic Peptide Total Protein 8.9 H Albumin 3.7 L Globulin 5.2 Albumin/Globulin Ratio 0.7 L Urine Source Urine Color Urine Clarity Urine pH Ur Specific [place] Urine Protein Urine Glucose (UA) Urine Ketones Urine Blood Urine Nitrate Urine Bilirubin Urine Urobilinogen Ur Leukocyte Esterase 08/09/18 08/10/18 08/10/18 22:30 04:35 04:35 WBC 18.0 H D RBC 4.14 Hgb 11.6 L Hct 35.4 L MCV 85.7 MCH 28.2 MCHC Differential 32.9 RDW 15.9 Plt Count 361 MPV 10.0 Add Manual Diff Neutrophils % 79.7 Band Neutrophils % 2 Lymphocytes % 7.8 L Monocytes % 12.2 H Eosinophils % 0.2 Basophils % 0.1 Neutrophils (Manual) 76 Lymphocytes 12 L Monocytes 10 Sodium 142 Potassium 4.3 Chloride 107 Carbon Dioxide 27.0 Anion Gap 12.3 BUN 21 Creatinine 0.7 Est GFR ( Amer) TNP Est GFR (Non-Af Amer) TNP BUN/Creatinine Ratio 30.0 Glucose 119 H Whole Bld Lactic Acid 1.40 Calcium 9.4 Total Bilirubin AST ALT Alkaline Phosphatase B-Natriuretic Peptide Total Protein Albumin Globulin Albumin/Globulin Ratio Urine Source Urine Color Urine Clarity Urine pH Ur Specific [place] Urine Protein Urine Glucose (UA) Urine Ketones Urine Blood Urine Nitrate Urine Bilirubin Urine Urobilinogen Ur Leukocyte Esterase 08/10/18 08/10/18 04:35 10:21 WBC RBC Hgb Hct MCV MCH MCHC Differential RDW Plt Count MPV Add Manual Diff Neutrophils % Band Neutrophils % Lymphocytes % Monocytes % Eosinophils % Basophils % Neutrophils (Manual) Lymphocytes Monocytes Sodium Potassium Chloride Carbon Dioxide Anion Gap BUN Creatinine Est GFR ( Amer) Est GFR (Non-Af Amer) BUN/Creatinine Ratio Glucose Whole Bld Lactic Acid Calcium Total Bilirubin AST ALT Alkaline Phosphatase B-Natriuretic Peptide 59.3 Total Protein Albumin Globulin Albumin/Globulin Ratio Urine Source CLEAN C Urine Color YELLOW Urine Clarity CLEAR Urine pH 8.0 Ur Specific [place] 1.015 Urine Protein NEGATIVE Urine Glucose (UA) NEGATIVE Urine Ketones NEGATIVE Urine Blood NEGATIVE Urine Nitrate NEGATIVE Urine Bilirubin NEGATIVE Urine Urobilinogen 0.2 Ur Leukocyte Esterase NEGATIVE - Assessment Assessment: gt malfunction-replaced leukocytosis possible sepsis asthma copd dyslipidemia - Plan Plan: empiric ivabx follow up labs in am ivf for hydration gtf to start tonight continue current orders
--- NOTE | 2018-08-10 17:35 | Consultation ---
DATE OF CONSULTATION: 08/10/2018 REQUESTING PHYSICIAN: Dr. Hinkle. REASON FOR CONSULTATION: G-tube malfunction. Thank you for asking me to see this patient in consultation. HISTORY OF PRESENT ILLNESS: This is a pleasant 83-year-old male with history of brain injury and chronically G-tube dependent, who presents with G-tube malfunction. The patient's G-tube was unable to be flushed and there was concern about G-tube placement. We have been consulted for further evaluation of the location of G-tube. The patient is a poor historian, but does not seem to be in any distress. The patient's x-ray showed copious amounts of stool. PAST MEDICAL HISTORY: G-tube dependence, CVA. MEDICATIONS: Have been reviewed. REVIEW OF SYSTEMS: Unable to obtain given the patient's state. PHYSICAL EXAMINATION: VITAL SIGNS: Temperature is 98.5, pulse of 107, respiratory rate of 17, blood pressure 149/72, currently satting 96% on room air. GENERAL: He is in no acute distress. HEENT: Normocephalic, atraumatic. PERRL positive. LUNGS: Clear bilaterally. No wheezes, rales or rhonchi. HEART: Regular rate and rhythm, normal S1, S2. ABDOMEN: Soft, nontender. There is a single G-tube which is atraumatic in the stomach that is seen. EXTREMITIES: Show no lower extremity edema. PSYCHOLOGICAL: Alert and oriented x 3. NEUROLOGIC: Grossly intact. LABORATORY DATA: White count of 25,000, hemoglobin of . Sodium 138, potassium 4.3, chloride 107, CO2 of 26. IMAGING: None relevant. ASSESSMENT AND PLAN: This is an 83-year-old male with history of G-tube dependence, who presents for dislodged G-tube. 1. Dislodged G-tube. 2. Malfunctioning G-tube. 3. Leukocytosis. We will attempt to change the G-tube at the bedside. We will confirm G-tube placement with Gastrografin study before making any recommendations to initiate starting G-tube feedings and pills. Discussed this with the nurse at the bedside. JOB# [id number]
--- NOTE | 2018-08-10 17:39 | Operative Report ---
DATE OF SURGERY: 08/10/2018 PROCEDURE PERFORMED: G-tube replacement. INDICATION: Replacement of malfunctioning G-tube. DESCRIPTION OF PROCEDURE: While the patient was in a comfortable position, we tested the original G-tube and unfortunately it would flush, but no gastric aspirate was being obtained upon suctioning and the thought process was that the G-tube was likely clogged. Then, deflating the G-tube, we would simply easily remove this and in its place an 18-Hungarian G-tube was placed, which felt to go into a nice mature tract. We then inflated the G-tube with 20 mL of sterile water and this was pulled back until it was nice and snug and secured on the outside. RECOMMENDATIONS: 1. Obtain Gastrografin study through the G-tube to confirm its position. 2. If the G-tube is confirmed to be in a good location, then and only then it is okay to start tube feedings and pills through the G-tube. 3. Please call GI if any issues. Thank you for allowing us to participate in the patient's care. JOB# [id number]
[2018-08-10] MEDS ORDERED: Atorvastatin Calcium 10 MG TAB GT SCH (21:00)
[2018-08-11] MEDS: Ferrous Sulfate 300 MG/5 ML UDC GT SCH ×3 (00:19→15:08)
[2018-08-11 06:50] LABS: % BASOPHILS 0.1 % (0.0-2.0); % EOSINOPHILS 0.3 % (0.0-5.0); % LYMPHOCYTES 14.9 % (20.0-50.0); % MONOCYTES 9.7 % (2.0-10.0); HEMATOCRIT 35.2 % (41.0-60); HEMOGLOBIN 11.5 gm/dL (12-16); LYMPHOCYTE ABSOLUTE 1.3 Th/cmm (1.5-3.0); MEAN CORPUSCULAR HEMOGLOBIN 28.1 pg (27.0-31.0); MEAN CORPUSCULAR HGB CONC 32.7 pg (28.0-36.0); MEAN PLATELET VOLUME 10.5 fl; MONOCYTE ABSOLUTE 0.8 Th/cmm (0.3-1.0); NEUTROPHILE ABSOLUTE 6.6 Th/cmm (1.8-8.0); PLATELET COUNT 310 Th/cmm (150-400); RED BLOOD COUNT 4.09 Mil/cmm (3.80-5.80); RED CELL DISTRIBUTION WIDTH 15.1 % (11.5-20.0); WHITE BLOOD COUNT 8.7 Th/cmm (4.8-10.8)
[2018-08-11] MEDS: Albuterol/Ipratropium Neb 3 ML AERS HHN SCH ×4 (07:45→19:21)
[2018-08-11] MEDS: Budesonide 0.5 Mg/2 mL Ud HHN SCH ×2 (07:45→19:35)
[2018-08-11 07:54] LABS: ANION GAP 12.5 (7.0-16.0); BUN - UREA NITROGEN 19 mg/dL (7-25); CALCIUM SERUM 9.3 mg/dL (8.6-10.3); CARBON DIOXIDE 25.7 mEq/L (21.0-31.0); CHLORIDE 106 mEq/L (98-107); CREATININE - SERUM 0.6 mg/dL (0.7-1.3); GLUCOSE 129 mg/dL (70-105); POTASSIUM SERUM 4.2 mEq/L (3.5-5.1); SODIUM SERUM 140 mEq/L (136-145)
--- NOTE | 2018-08-11 09:00 | Diagnostic Imaging Report ---
Upper GI with Gastrografin HISTORY: G-tube confirmation COMPARISON: Upper GI series on 08/09/2018 FINDINGS: Senior Animal Trainer view demonstrates nonspecific bowel gas pattern. The second image demonstrates contrast opacification of the stomach and small bowel loops. IMPRESSION: Intraluminal confirmation of patient's percutaneous gastric feeding tube.
[2018-08-11] MEDS: Multivitamin w/ Minerals 15 mL UDC GT SCH (09:16)
[2018-08-11] MEDS: Lactobacillus Rhamnosus GG 15 Billion CFU CAP.SPRINK GT SCH (09:16)
[2018-08-11] MEDS: Lidocaine 5% Patch TD SCH (09:17)
--- NOTE | 2018-08-11 13:03 | Diagnostic Imaging Report ---
CHEST X-RAY: AP view INDICATION: Sepsis COMPARISON: 05/31/2018 FINDINGS: Small left effusion is seen with left basal atelectasis versus infiltrate. Heart size is normal. IMPRESSION: Small left effusion with left basal atelectasis versus infiltrate.
--- NOTE | 2018-08-11 14:06 | GI Progress Note ---
Subjective - Review of Systems Service Date: 08/11/18 Events since last encounter: No events, G tube intact Objective - Results Result Diagrams: 08/11/18 06:16 08/11/18 06:16 Recent Labs: Laboratory Last Values WBC 8.7 Th/cmm (4.8-10.8) 08/11/18 06:16 RBC 4.09 Mil/cmm (3.80-5.80) 08/11/18 06:16 Hgb 11.5 gm/dL (12-16) L 08/11/18 06:16 Hct 35.2 % (41.0-60) L 08/11/18 06:16 MCV 86.0 fl (80-99) 08/11/18 06:16 MCH 28.1 pg (27.0-31.0) 08/11/18 06:16 MCHC Differential 32.7 pg (28.0-36.0) 08/11/18 06:16 RDW 15.1 % (11.5-20.0) 08/11/18 06:16 Plt Count 310 Th/cmm (150-400) 08/11/18 06:16 MPV 10.5 fl 08/11/18 06:16 Add Manual Diff YES 08/09/18 20:00 Neutrophils % 75.0 % (40.0-80.0) 08/11/18 06:16 Band Neutrophils % 2 % (0-10) 08/10/18 04:35 Lymphocytes % 14.9 % (20.0-50.0) L 08/11/18 06:16 Monocytes % 9.7 % (2.0-10.0) 08/11/18 06:16 Eosinophils % 0.3 % (0.0-5.0) 08/11/18 06:16 Basophils % 0.1 % (0.0-2.0) 08/11/18 06:16 Neutrophils (Manual) 76 % (40-80) 08/10/18 04:35 Lymphocytes 12 % (20-50) L 08/10/18 04:35 Monocytes 10 % (2-10) 08/10/18 04:35 Sodium 140 mEq/L (136-145) 08/11/18 06:16 Potassium 4.2 mEq/L (3.5-5.1) 08/11/18 06:16 Chloride 106 mEq/L (98-107) 08/11/18 06:16 Carbon Dioxide 25.7 mEq/L (21.0-31.0) 08/11/18 06:16 Anion Gap 12.5 (7.0-16.0) 08/11/18 06:16 BUN 19 mg/dL (7-25) 08/11/18 06:16 Creatinine 0.6 mg/dL (0.7-1.3) L 08/11/18 06:16 Est GFR ( Amer) TNP 08/11/18 06:16 Est GFR (Non-Af Amer) TNP 08/11/18 06:16 BUN/Creatinine Ratio 31.7 08/11/18 06:16 Glucose 129 mg/dL (70-105) H 08/11/18 06:16 Whole Bld Lactic Acid 1.40 mmol/L (0.60-1.99) 08/09/18 22:30 Calcium 9.3 mg/dL (8.6-10.3) 08/11/18 06:16 Total Bilirubin 0.7 mg/dL (0.3-1.0) 08/09/18 20:00 AST 37 U/L (13-39) 08/09/18 20:00 ALT 18 U/L (7-52) 08/09/18 20:00 Alkaline Phosphatase 78 U/L (34-104) 08/09/18 20:00 Ammonia 43 umol/L (16-53) 08/11/18 06:16 B-Natriuretic Peptide 132.0 pg/mL (5.0-100.0) H 08/11/18 06:16 Total Protein 8.9 gm/dL (6.0-8.3) H 08/09/18 20:00 Albumin 3.7 gm/dL (4.2-5.5) L 08/09/18 20:00 Globulin 5.2 gm/dL 08/09/18 20:00 Albumin/Globulin Ratio 0.7 (1.0-1.8) L 08/09/18 20:00 Urine Source CLEAN C 08/10/18 10:21 Urine Color YELLOW 08/10/18 10:21 Urine Clarity CLEAR (CLEAR) 08/10/18 10:21 Urine pH 8.0 (4.6 - 8.0) 08/10/18 10:21 Ur Specific Telephone 1.015 (1.005-1.030) 08/10/18 10:21 Urine Protein NEGATIVE mg/dL (NEGATIVE) 08/10/18 10:21 Urine Glucose (UA) NEGATIVE mg/dL (NEGATIVE) 08/10/18 10:21 Urine Ketones NEGATIVE mg/dL (NEGATIVE) 08/10/18 10:21 Urine Blood NEGATIVE (NEGATIVE) 08/10/18 10:21 Urine Nitrate NEGATIVE (NEGATIVE) 08/10/18 10:21 Urine Bilirubin NEGATIVE (NEGATIVE) 08/10/18 10:21 Urine Urobilinogen 0.2 E.U./dL (0.2 - 1.0) 08/10/18 10:21 Ur Leukocyte Esterase NEGATIVE (NEGATIVE) 08/10/18 10:21 - Physical Exam Vitals and I&O: Vital Signs Temp 96.8 F 08/11/18 11:57 Pulse 55 08/11/18 12:00 Resp 18 08/11/18 11:57 BP 133/60 08/11/18 12:00 Pulse Ox 100 08/11/18 11:57 Intake & Output 08/10/18 08/11/18 08/11/18 18:59 06:59 18:59 Intake Total 1050 930 Balance 1050 930 Weight (lbs) 66.542 kg Intake: Intake, IV Amount 1050 50 Cefepime 1 gm In Dextrose 50 50 5% 50 ml @ 100 mls/hr IV Q12HR [facility] Rx#:[id number] D5-0.45NS 1,000 ml @ 80 1000 mls/hr IV .[id number] [facility] Rx #:[id number] Oral 0 Tube Feeding 780 Other 100 Other: # Voids 3 # Bowel Movements 1 Weight Source Bedscale Active Medications: Current Medications Acetaminophen (Tylenol) 650 mg PO Q4H PRN PRN Reason: Pain Or Fever above 101 Stop: 10/08/18 23:27 Acetaminophen/Hydrocodone Bitart ([place] 5mg/325mg) 1 tab PO Q4H PRN PRN Reason: Pain (Severe) Stop: 10/08/18 23:27 Last Admin: 08/10/18 21:08 Dose: 1 tab Al Hydrox/Mg Hydrox/Simethicone (Maalox) 30 ml GT Q6H PRN PRN Reason: Dyspepsia Stop: 10/08/18 23:25 Albuterol/Ipratropium (Duoneb Neb) 3 ml HHN Q6HRT PRN PRN Reason: Shortness of Breath Stop: 10/08/18 23:25 Albuterol/Ipratropium (Duoneb Neb) 3 ml HHN QIDRT [facility]; Protocol Stop: 10/09/18 06:59 Last Admin: 08/11/18 11:50 Dose: 3 ml Ascorbic Acid (Vitamin C) 500 mg GT DAILY [facility] Stop: 10/09/18 08:59 Last Admin: 08/11/18 09:17 Dose: 500 mg Atorvastatin Calcium (Lipitor) 40 mg GT HS [facility] Stop: 10/09/18 20:59 Last Admin: 08/10/18 21:09 Dose: 40 mg Budesonide (Pulmicort) 0.5 mg HHN BIDRT [facility] Stop: 10/09/18 06:59 Last Admin: 08/11/18 07:45 Dose: 0.5 mg Ferrous Sulfate (Iron) 450 mg GT Q8H [facility] Stop: 10/08/18 23:29 Last Admin: 08/11/18 09:20 Dose: 450 mg Glucagon (Glucagen) 1 mg IM DAILY PRN PRN Reason: BS BELOW 60 & NOT TOLERATE PO Stop: 10/08/18 23:25 Guaifenesin (Robitussin) 200 mg PO Q4HR PRN PRN Reason: Cough or Congestion Stop: 10/08/18 23:27 Heparin Sodium (Porcine) (Heparin) 5,000 units SUBQ Q12HR [facility] Stop: 10/09/18 08:59 Last Admin: 08/11/18 09:18 Dose: 5,000 units Hydralazine HCl (Apresoline 20 Mg/Ml) 10 mg IV Q6HR PRN PRN Reason: SBP ABOVE 160 Stop: 10/09/18 13:09 Dextrose/Sodium Chloride (D5-0.45ns) 1,000 mls @ 80 mls/hr IV .[id number] [facility] Stop: 10/09/18 00:59 Last Admin: 08/10/18 23:21 Dose: 80 mls/hr Cefepime HCl 1 gm/ Dextrose 50 mls @ 100 mls/hr IV Q12HR [facility] Stop: 10/09/18 08:59 Last Admin: 08/11/18 09:17 Dose: 100 mls/hr Lactobacillus Rhamnosus (Culturelle 15b) 1 each GT DAILY [facility] Stop: 10/09/18 08:59 Last Admin: 08/11/18 09:16 Dose: 1 each Lidocaine (Lidoderm 5% Patch) 1 patch TD DAILY [facility] Stop: 10/09/18 08:59 Last Admin: 08/11/18 09:17 Dose: 1 patch Magnesium Hydroxide (Milk Of Magnesia) 30 ml GT Q12H PRN PRN Reason: Constipation Stop: 10/08/18 23:25 Metoprolol Tartrate (Lopressor) 25 mg GT Q12H [facility] Stop: 10/09/18 00:00 Last Admin: 08/11/18 11:26 Dose: 25 mg Multivitamins/Minerals (Theragran M) 5 ml GT DAILY [facility] Stop: 10/09/18 08:59 Last Admin: 08/11/18 09:16 Dose: 5 ml Ondansetron HCl (Zofran) 4 mg IV Q8H PRN PRN Reason: Nausea / Vomiting Stop: 10/08/18 23:27 General: Alert, No acute distress HEENT: PERRLA, EOMI Neck: Supple, JVD, Thyromegaly Cardiovascular: Regular rate, Normal S1, Normal S2 Lungs: Clear to auscultation Abdomen: Bowel sounds, Soft Assessment/Plan - Assessment Assessment: 1. Dislodged G tube 2. Dysphagia 3. Abdominal Pain -G tube in good position -Currently tolerating to goal rate -Continue with supportive care and management per primary
[2018-08-11] MEDS: D5-0.45NS 1,000 ML IV SCH (15:10)
--- NOTE | 2018-08-11 16:46 | Internal Medicine Prog Note ---
Internal Medicine Subjective - Subjective Service Date: 08/11/18 (tolerating gtf) Patient seen and examined:: with staff Patient is:: awake, verbal Per staff patient has:: tolerating meds Internal Medicine Objective - Results Result Diagrams: 08/11/18 06:16 08/11/18 06:16 Recent Labs: Laboratory Last Values WBC 8.7 Th/cmm (4.8-10.8) 08/11/18 06:16 RBC 4.09 Mil/cmm (3.80-5.80) 08/11/18 06:16 Hgb 11.5 gm/dL (12-16) L 08/11/18 06:16 Hct 35.2 % (41.0-60) L 08/11/18 06:16 MCV 86.0 fl (80-99) 08/11/18 06:16 MCH 28.1 pg (27.0-31.0) 08/11/18 06:16 MCHC Differential 32.7 pg (28.0-36.0) 08/11/18 06:16 RDW 15.1 % (11.5-20.0) 08/11/18 06:16 Plt Count 310 Th/cmm (150-400) 08/11/18 06:16 MPV 10.5 fl 08/11/18 06:16 Add Manual Diff YES 08/09/18 20:00 Neutrophils % 75.0 % (40.0-80.0) 08/11/18 06:16 Band Neutrophils % 2 % (0-10) 08/10/18 04:35 Lymphocytes % 14.9 % (20.0-50.0) L 08/11/18 06:16 Monocytes % 9.7 % (2.0-10.0) 08/11/18 06:16 Eosinophils % 0.3 % (0.0-5.0) 08/11/18 06:16 Basophils % 0.1 % (0.0-2.0) 08/11/18 06:16 Neutrophils (Manual) 76 % (40-80) 08/10/18 04:35 Lymphocytes 12 % (20-50) L 08/10/18 04:35 Monocytes 10 % (2-10) 08/10/18 04:35 Sodium 140 mEq/L (136-145) 08/11/18 06:16 Potassium 4.2 mEq/L (3.5-5.1) 08/11/18 06:16 Chloride 106 mEq/L (98-107) 08/11/18 06:16 Carbon Dioxide 25.7 mEq/L (21.0-31.0) 08/11/18 06:16 Anion Gap 12.5 (7.0-16.0) 08/11/18 06:16 BUN 19 mg/dL (7-25) 08/11/18 06:16 Creatinine 0.6 mg/dL (0.7-1.3) L 08/11/18 06:16 Est GFR ( Amer) TNP 08/11/18 06:16 Est GFR (Non-Af Amer) TNP 08/11/18 06:16 BUN/Creatinine Ratio 31.7 08/11/18 06:16 Glucose 129 mg/dL (70-105) H 08/11/18 06:16 Whole Bld Lactic Acid 1.40 mmol/L (0.60-1.99) 08/09/18 22:30 Calcium 9.3 mg/dL (8.6-10.3) 08/11/18 06:16 Total Bilirubin 0.7 mg/dL (0.3-1.0) 08/09/18 20:00 AST 37 U/L (13-39) 08/09/18 20:00 ALT 18 U/L (7-52) 08/09/18 20:00 Alkaline Phosphatase 78 U/L (34-104) 08/09/18 20:00 Ammonia 43 umol/L (16-53) 08/11/18 06:16 B-Natriuretic Peptide 132.0 pg/mL (5.0-100.0) H 08/11/18 06:16 Total Protein 8.9 gm/dL (6.0-8.3) H 08/09/18 20:00 Albumin 3.7 gm/dL (4.2-5.5) L 08/09/18 20:00 Globulin 5.2 gm/dL 08/09/18 20:00 Albumin/Globulin Ratio 0.7 (1.0-1.8) L 08/09/18 20:00 Urine Source CLEAN C 08/10/18 10:21 Urine Color YELLOW 08/10/18 10:21 Urine Clarity CLEAR (CLEAR) 08/10/18 10:21 Urine pH 8.0 (4.6 - 8.0) 08/10/18 10:21 Ur Specific [place] 1.015 (1.005-1.030) 08/10/18 10:21 Urine Protein NEGATIVE mg/dL (NEGATIVE) 08/10/18 10:21 Urine Glucose (UA) NEGATIVE mg/dL (NEGATIVE) 08/10/18 10:21 Urine Ketones NEGATIVE mg/dL (NEGATIVE) 08/10/18 10:21 Urine Blood NEGATIVE (NEGATIVE) 08/10/18 10:21 Urine Nitrate NEGATIVE (NEGATIVE) 08/10/18 10:21 Urine Bilirubin NEGATIVE (NEGATIVE) 08/10/18 10:21 Urine Urobilinogen 0.2 E.U./dL (0.2 - 1.0) 08/10/18 10:21 Ur Leukocyte Esterase NEGATIVE (NEGATIVE) 08/10/18 10:21 - Physical Exam Vitals and I&O: Vital Signs Temp 97.1 F 08/11/18 15:40 Pulse 60 08/11/18 15:40 Resp 18 08/11/18 15:40 BP 119/68 08/11/18 15:40 Pulse Ox 98 08/11/18 15:40 Intake & Output 08/10/18 08/11/18 08/11/18 18:59 06:59 18:59 Intake Total 4035 447 5591 Balance 3614 088 0305 Weight (lbs) 146 lb 11.2 oz Intake: Intake, IV Amount 1050 50 1000 Cefepime 1 gm In Dextrose 50 50 5% 50 ml @ 100 mls/hr IV Q12HR [facility] Rx#:[id number] D5-0.45NS 1,000 ml @ 80 1000 1000 mls/hr IV .[id number] [facility] Rx #:[id number] Oral 0 Tube Feeding 780 Other 100 Other: # Voids 3 # Bowel Movements 1 Weight Source Bedscale Active Medications: Current Medications Acetaminophen (Tylenol) 650 mg PO Q4H PRN PRN Reason: Pain Or Fever above 101 Stop: 10/08/18 23:27 Acetaminophen/Hydrocodone Bitart ([place] 5mg/325mg) 1 tab PO Q4H PRN PRN Reason: Pain (Severe) Stop: 10/08/18 23:27 Last Admin: 08/10/18 21:08 Dose: 1 tab Al Hydrox/Mg Hydrox/Simethicone (Maalox) 30 ml GT Q6H PRN PRN Reason: Dyspepsia Stop: 10/08/18 23:25 Albuterol/Ipratropium (Duoneb Neb) 3 ml HHN Q6HRT PRN PRN Reason: Shortness of Breath Stop: 10/08/18 23:25 Albuterol/Ipratropium (Duoneb Neb) 3 ml HHN QIDRT [facility]; Protocol Stop: 10/09/18 06:59 Last Admin: 08/11/18 14:58 Dose: 3 ml Ascorbic Acid (Vitamin C) 500 mg GT DAILY [facility] Stop: 10/09/18 08:59 Last Admin: 08/11/18 09:17 Dose: 500 mg Atorvastatin Calcium (Lipitor) 40 mg GT HS [facility] Stop: 10/09/18 20:59 Last Admin: 08/10/18 21:09 Dose: 40 mg Budesonide (Pulmicort) 0.5 mg HHN BIDRT [facility] Stop: 10/09/18 06:59 Last Admin: 08/11/18 07:45 Dose: 0.5 mg Ferrous Sulfate (Iron) 450 mg GT Q8H [facility] Stop: 10/08/18 23:29 Last Admin: 08/11/18 15:08 Dose: 450 mg Glucagon (Glucagen) 1 mg IM DAILY PRN PRN Reason: BS BELOW 60 & NOT TOLERATE PO Stop: 10/08/18 23:25 Guaifenesin (Robitussin) 200 mg PO Q4HR PRN PRN Reason: Cough or Congestion Stop: 10/08/18 23:27 Heparin Sodium (Porcine) (Heparin) 5,000 units SUBQ Q12HR [facility] Stop: 10/09/18 08:59 Last Admin: 08/11/18 09:18 Dose: 5,000 units Hydralazine HCl (Apresoline 20 Mg/Ml) 10 mg IV Q6HR PRN PRN Reason: SBP ABOVE 160 Stop: 10/09/18 13:09 Dextrose/Sodium Chloride (D5-0.45ns) 1,000 mls @ 80 mls/hr IV .[id number] [facility] Stop: 10/09/18 00:59 Last Admin: 08/11/18 15:10 Dose: 80 mls/hr Cefepime HCl 1 gm/ Dextrose 50 mls @ 100 mls/hr IV Q12HR [facility] Stop: 10/09/18 08:59 Last Admin: 08/11/18 09:17 Dose: 100 mls/hr Lactobacillus Rhamnosus (Culturelle 15b) 1 each GT DAILY [facility] Stop: 10/09/18 08:59 Last Admin: 08/11/18 09:16 Dose: 1 each Lidocaine (Lidoderm 5% Patch) 1 patch TD DAILY [facility] Stop: 10/09/18 08:59 Last Admin: 08/11/18 09:17 Dose: 1 patch Magnesium Hydroxide (Milk Of Magnesia) 30 ml GT Q12H PRN PRN Reason: Constipation Stop: 10/08/18 23:25 Metoprolol Tartrate (Lopressor) 25 mg GT Q12H [facility] Stop: 10/09/18 00:00 Last Admin: 08/11/18 11:26 Dose: 25 mg Multivitamins/Minerals (Theragran M) 5 ml GT DAILY [facility] Stop: 10/09/18 08:59 Last Admin: 08/11/18 09:16 Dose: 5 ml Ondansetron HCl (Zofran) 4 mg IV Q8H PRN PRN Reason: Nausea / Vomiting Stop: 10/08/18 23:27 - Procedures Procedures: Procedures Procedure Code Date CHANGE FEEDING DEVICE IN UP INTEST TRACT, SIGN MAINTENANCE APPROACH [id number] 08/09/18 Internal Medicine Assmt/Plan - Assessment Assessment: gt malfunction-replaced leukocytosis possible sepsis asthma copd dyslipidemia - Plan Plan: empiric ivabx follow up labs in am ivf for hydration continue current orders Nutritional Asmnt/Malnutr-PDOC - Dietary Evaluation Malnutrition Findings (Please click <Entered> for more info): Nutritional Asmnt/Malnutrition Start: 08/10/18 13: 28 Text: Status: Complete Freq: Protocol: Document 08/10/18 13:44 [email or web address] (Rec: 08/10/18 13:47 [email or web address]) Nutritional Asmnt/Malnutrition Malnutrition Alert Is there a minimum of two criteria No selected? Query Text:Check all the applicable criteria. A minimum of two criteria are recommended for diagnosis of either severe or non-severe malnutrition. Intervention/Recommendation Comments AWAITING GT REPLACEMENT TO RESUME TF ABOVE Expected Outcomes/Goals Expected Outcomes/Goals DIETITIAN WILL MONITOR NPO STATUS, NUTRITIO RELATED LABS, SKIN INTEGRITY, WEIGHTS & GI FUNCTION
[2018-08-12] MEDS: Ferrous Sulfate 300 MG/5 ML UDC GT SCH ×3 (01:11→14:58)
[2018-08-12] MEDS: Budesonide 0.5 Mg/2 mL Ud HHN SCH (06:32)
[2018-08-12] MEDS: Albuterol/Ipratropium Neb 3 ML AERS HHN SCH ×3 (06:32→14:08)
--- NOTE | 2018-08-12 07:56 | GI Progress Note ---
Subjective - Review of Systems Service Date: 08/12/18 Events since last encounter: no events Objective - Results Result Diagrams: 08/11/18 06:16 08/11/18 06:16 Recent Labs: Laboratory Last Values WBC 8.7 Th/cmm (4.8-10.8) 08/11/18 06:16 RBC 4.09 Mil/cmm (3.80-5.80) 08/11/18 06:16 Hgb 11.5 gm/dL (12-16) L 08/11/18 06:16 Hct 35.2 % (41.0-60) L 08/11/18 06:16 MCV 86.0 fl (80-99) 08/11/18 06:16 MCH 28.1 pg (27.0-31.0) 08/11/18 06:16 MCHC Differential 32.7 pg (28.0-36.0) 08/11/18 06:16 RDW 15.1 % (11.5-20.0) 08/11/18 06:16 Plt Count 310 Th/cmm (150-400) 08/11/18 06:16 MPV 10.5 fl 08/11/18 06:16 Add Manual Diff YES 08/09/18 20:00 Neutrophils % 75.0 % (40.0-80.0) 08/11/18 06:16 Band Neutrophils % 2 % (0-10) 08/10/18 04:35 Lymphocytes % 14.9 % (20.0-50.0) L 08/11/18 06:16 Monocytes % 9.7 % (2.0-10.0) 08/11/18 06:16 Eosinophils % 0.3 % (0.0-5.0) 08/11/18 06:16 Basophils % 0.1 % (0.0-2.0) 08/11/18 06:16 Neutrophils (Manual) 76 % (40-80) 08/10/18 04:35 Lymphocytes 12 % (20-50) L 08/10/18 04:35 Monocytes 10 % (2-10) 08/10/18 04:35 Sodium 140 mEq/L (136-145) 08/11/18 06:16 Potassium 4.2 mEq/L (3.5-5.1) 08/11/18 06:16 Chloride 106 mEq/L (98-107) 08/11/18 06:16 Carbon Dioxide 25.7 mEq/L (21.0-31.0) 08/11/18 06:16 Anion Gap 12.5 (7.0-16.0) 08/11/18 06:16 BUN 19 mg/dL (7-25) 08/11/18 06:16 Creatinine 0.6 mg/dL (0.7-1.3) L 08/11/18 06:16 Est GFR ( Amer) TNP 08/11/18 06:16 Est GFR (Non-Af Amer) TNP 08/11/18 06:16 BUN/Creatinine Ratio 31.7 08/11/18 06:16 Glucose 129 mg/dL (70-105) H 08/11/18 06:16 Whole Bld Lactic Acid 1.40 mmol/L (0.60-1.99) 08/09/18 22:30 Calcium 9.3 mg/dL (8.6-10.3) 08/11/18 06:16 Total Bilirubin 0.7 mg/dL (0.3-1.0) 08/09/18 20:00 AST 37 U/L (13-39) 08/09/18 20:00 ALT 18 U/L (7-52) 08/09/18 20:00 Alkaline Phosphatase 78 U/L (34-104) 08/09/18 20:00 Ammonia 43 umol/L (16-53) 08/11/18 06:16 B-Natriuretic Peptide 132.0 pg/mL (5.0-100.0) H 08/11/18 06:16 Total Protein 8.9 gm/dL (6.0-8.3) H 08/09/18 20:00 Albumin 3.7 gm/dL (4.2-5.5) L 08/09/18 20:00 Globulin 5.2 gm/dL 08/09/18 20:00 Albumin/Globulin Ratio 0.7 (1.0-1.8) L 08/09/18 20:00 Urine Source CLEAN C 08/10/18 10:21 Urine Color YELLOW 08/10/18 10:21 Urine Clarity CLEAR (CLEAR) 08/10/18 10:21 Urine pH 8.0 (4.6 - 8.0) 08/10/18 10:21 Ur Specific [place] 1.015 (1.005-1.030) 08/10/18 10:21 Urine Protein NEGATIVE mg/dL (NEGATIVE) 08/10/18 10:21 Urine Glucose (UA) NEGATIVE mg/dL (NEGATIVE) 08/10/18 10:21 Urine Ketones NEGATIVE mg/dL (NEGATIVE) 08/10/18 10:21 Urine Blood NEGATIVE (NEGATIVE) 08/10/18 10:21 Urine Nitrate NEGATIVE (NEGATIVE) 08/10/18 10:21 Urine Bilirubin NEGATIVE (NEGATIVE) 08/10/18 10:21 Urine Urobilinogen 0.2 E.U./dL (0.2 - 1.0) 08/10/18 10:21 Ur Leukocyte Esterase NEGATIVE (NEGATIVE) 08/10/18 10:21 - Physical Exam Vitals and I&O: Vital Signs Temp 97.9 F 08/12/18 06:00 Pulse 73 08/12/18 06:00 Resp 18 08/12/18 06:00 BP 150/68 08/12/18 06:00 Pulse Ox 95 08/12/18 06:00 Intake & Output 08/11/18 08/12/18 08/12/18 18:59 06:59 18:59 Intake Total 1870 915 Balance 1870 915 Weight (lbs) 66.542 kg 66.678 kg Intake: Intake, IV Amount 1050 Cefepime 1 gm In Dextrose 50 5% 50 ml @ 100 mls/hr IV Q12HR [facility] Rx#:[id number] D5-0.45NS 1,000 ml @ 80 1000 mls/hr IV .[id number] [facility] Rx #:[id number] Tube Feeding 520 715 Other 300 200 Other: # Voids 3 3 # Bowel Movements 1 3 Weight Source Bedscale Bedscale Active Medications: Current Medications Acetaminophen (Tylenol) 650 mg PO Q4H PRN PRN Reason: Pain Or Fever above 101 Stop: 10/08/18 23:27 Acetaminophen/Hydrocodone Bitart ([place] 5mg/325mg) 1 tab PO Q4H PRN PRN Reason: Pain (Severe) Stop: 10/08/18 23:27 Last Admin: 08/10/18 21:08 Dose: 1 tab Al Hydrox/Mg Hydrox/Simethicone (Maalox) 30 ml GT Q6H PRN PRN Reason: Dyspepsia Stop: 10/08/18 23:25 Albuterol/Ipratropium (Duoneb Neb) 3 ml HHN Q6HRT PRN PRN Reason: Shortness of Breath Stop: 10/08/18 23:25 Albuterol/Ipratropium (Duoneb Neb) 3 ml HHN QIDRT [facility]; Protocol Stop: 10/09/18 06:59 Last Admin: 08/12/18 06:32 Dose: 3 ml Ascorbic Acid (Vitamin C) 500 mg GT DAILY [facility] Stop: 10/09/18 08:59 Last Admin: 08/11/18 09:17 Dose: 500 mg Atorvastatin Calcium (Lipitor) 40 mg GT HS [facility] Stop: 10/09/18 20:59 Last Admin: 08/11/18 20:40 Dose: 40 mg Budesonide (Pulmicort) 0.5 mg HHN BIDRT [facility] Stop: 10/09/18 06:59 Last Admin: 08/12/18 06:32 Dose: 0.5 mg Ferrous Sulfate (Iron) 450 mg GT Q8H [facility] Stop: 10/08/18 23:29 Last Admin: 08/12/18 01:11 Dose: 450 mg Glucagon (Glucagen) 1 mg IM DAILY PRN PRN Reason: BS BELOW 60 & NOT TOLERATE PO Stop: 10/08/18 23:25 Guaifenesin (Robitussin) 200 mg PO Q4HR PRN PRN Reason: Cough or Congestion Stop: 10/08/18 23:27 Heparin Sodium (Porcine) (Heparin) 5,000 units SUBQ Q12HR [facility] Stop: 10/09/18 08:59 Last Admin: 08/11/18 20:41 Dose: 5,000 units Hydralazine HCl (Apresoline 20 Mg/Ml) 10 mg IV Q6HR PRN PRN Reason: SBP ABOVE 160 Stop: 10/09/18 13:09 Dextrose/Sodium Chloride (D5-0.45ns) 1,000 mls @ 80 mls/hr IV .[id number] [facility] Stop: 10/09/18 00:59 Last Admin: 08/11/18 15:10 Dose: 80 mls/hr Cefepime HCl 1 gm/ Dextrose 50 mls @ 100 mls/hr IV Q12HR [facility] Stop: 10/09/18 08:59 Last Admin: 08/11/18 21:58 Dose: 100 mls/hr Lactobacillus Rhamnosus (Culturelle 15b) 1 each GT DAILY [facility] Stop: 10/09/18 08:59 Last Admin: 08/11/18 09:16 Dose: 1 each Lidocaine (Lidoderm 5% Patch) 1 patch TD DAILY [facility] Stop: 10/09/18 08:59 Last Admin: 08/11/18 09:17 Dose: 1 patch Magnesium Hydroxide (Milk Of Magnesia) 30 ml GT Q12H PRN PRN Reason: Constipation Stop: 10/08/18 23:25 Metoprolol Tartrate (Lopressor) 25 mg GT Q12H [facility] Stop: 10/09/18 00:00 Last Admin: 08/12/18 01:10 Dose: 25 mg Multivitamins/Minerals (Theragran M) 5 ml GT DAILY SCOTT Stop: 10/09/18 08:59 Last Admin: 08/11/18 09:16 Dose: 5 ml Ondansetron HCl (Zofran) 4 mg IV Q8H PRN PRN Reason: Nausea / Vomiting Stop: 10/08/18 23:27 General: Alert, No acute distress HEENT: PERRLA, EOMI Neck: Supple, JVD, Thyromegaly Cardiovascular: Regular rate, Normal S1, Normal S2 Lungs: Clear to auscultation Abdomen: Bowel sounds, Soft - Procedures Procedures: Procedures Procedure Code Date CHANGE FEEDING DEVICE IN UP INTEST TRACT, SKIP PITMAN APPROACH [id number] 08/09/18 Assessment/Plan - Assessment Assessment: 1. Dislodged G tube 2. Dysphagia 3. Abdominal Pain -G tube in good position -Currently tolerating to goal rate -Continue with supportive care and management per primary
[2018-08-12] MEDS: Lidocaine 5% Patch TD SCH (08:31)
[2018-08-12] MEDS: Multivitamin w/ Minerals 15 mL UDC GT SCH (08:32)
[2018-08-12] MEDS: Lactobacillus Rhamnosus GG 15 Billion CFU CAP.SPRINK GT SCH (08:33)
--- NOTE | 2018-08-12 17:23 | Discharge Summary ---
DATE OF DISCHARGE: 08/12/2018 CHIEF COMPLAINT: Malfunctioning G-tube, dehydration. FINAL DIAGNOSES: Malfunctioning G-tube which was replaced, leukocytosis, possible sepsis, asthma, chronic obstructive pulmonary disease, hypercholesterolemia, bedbound, functional quadriplegia. HISTORY: This is an 83-year-old -[place] male with history of asthma, COPD, hypercholesterolemia, chronic respiratory failure, previous pneumonia, status post trach removal, admitted secondary to malfunctioning G-tube, unable to take his medications. The patient was evaluated in the ER and noted to have elevated white count of 25,000. The patient is admitted for further management. PHYSICAL EXAMINATION: VITAL SIGNS: Blood pressure 136/71, respirations 18, pulse 70, temperature 97.0. GENERAL: Elderly male, appears his age. NECK: Supple. Old trach site. LUNGS: Equal breath sounds, few rhonchi. HEART: Regular rate and rhythm. Systolic ejection murmur. ABDOMEN: Soft, globular. EXTREMITIES: Positive excoriation. LABORATORY DATA: Limited labs were noted. HOSPITAL COURSE: The patient was admitted on telemetry. The patient was given IV hydration, IV antibiotic. White count was 25,000. The patient was referred to Dr. Gloria from GI and G-tube was replaced. The patient's condition is improved. White count is improved to 8000. The patient cleared for discharge. CONDITION ON DISCHARGE: Fair. DISCHARGE INSTRUCTIONS: The patient will continue with current medical regimen. We will monitor the patient closely at the nursing facility. JOB# [id number]
== END 2018-08-12 18:00 | DRG 393 ==
LOC: ER 18:05 → MSI 22:37 → TELE 08-10 00:13
PROVIDERS: ADMIT Internal Medicine; ATTEND Internal Medicine
PROC: 0D20XUZ Change Feeding Device in Upper Intestinal Tract, External Approach (ICD-10-PCS; principal; 2018-08-10)
DX: K94.23 Gastrostomy malfunction (principal); A41.9 Sepsis, unspecified organism; R53.2 Functional quadriplegia; J96.10 Chronic respiratory failure, unspecified whether with hypoxia or hypercapnia; E86.0 Dehydration; J44.9 Chronic obstructive pulmonary disease, unspecified; Y83.8 Other surgical procedures as the cause of abnormal reaction of the patient, or of later complication, without mention of misadventure at the time of the procedure; Y92.89 Other specified places as the place of occurrence of the external cause; E78.5 Hyperlipidemia, unspecified; E78.00 Pure hypercholesterolemia, unspecified; Z74.01 Bed confinement status; Z79.4 Long term (current) use of insulin
CPT/HCPCS: 36415-UA; 71045-TC; 74000-TC; 80048-TC; 80053-TC; 81003-TC; 82140-TC; 83605; 83880-TC; 85007-TC; 85025-TC; 94760; J0692; J0696; J1644; J3370; X7704; Z7610

== ENCOUNTER 2018-09-18 12:08 | Emergency (ER) | payer MEDICARE, OTHER ==
[2018-09-18] MEDS ORDERED: Diatrizoate Meglumine/Diatri 30 mL Sol PO ONE (12:09)
--- NOTE | 2018-09-18 12:30 | ED Physician Chart ---
ED Chief Complaint/HPI - Patient Information Date Seen:: 09/18/18 Time Seen:: 12:28 Chief Complaint:: g-tube replacement needed History of Present Illness:: this is an 83 yo male who [facility]. Allergies:: Allergies Allergy/AdvReac Type Severity Reaction Status Date / Time No Known Allergies Allergy Verified 09/18/18 12:17 Vitals:: Vital Signs - 8 hr 09/18/18 12:17 Temp 97.5 F HR 69 RR 18 BP 129/67 O2 Sat % 95 Historian:: Patient, Medical Records Review:: Nurse's Note Reviewed, Old Chart Reviewed ED Review of Systems - Review of Systems General/Constitutional: No fever, No chills, No weight loss, No weakness, No diaphoresis, No edema, No loss of appetite Skin: No skin lesions, No rash, No bruising Head: No headache, No light-headedness Eyes: No loss of vision, No pain, No diplopia ENT: No earache, No nasal drainage, No sore throat, No tinnitus Neck: No neck pain, No swelling, No thyromegaly, No stiffness, No mass noted Cardio Vascular: No chest pain, No palpitations, No PND, No orthopnea, No edema Pulmonary: No SOB, No cough, No sputum, No wheezing GI: No nausea, No vomiting, No diarrhea, No pain, No melena, No hematochezia, No constipation, No hematemesis, Other ( g-tube is out) G/U: No dysuria, No frequency, No hematuria Musculoskeletal: No bone or joint pain, No back pain, No muscle pain Endocrine: No polyuria, No polydipsia Psychiatric: No prior psych history, No depression, No anxiety, No suicidal ideation Hematopoietic: No bruising, No lymphadenopathy Allergic/Immuno: No urticaria, No angioedema Neurological: No syncope, No focal symptoms, No weakness, No paresthesia, No headache, No seizure, No dizziness, No confusion, No vertigo ED Past Medical History - Past Medical History Obtainable: Yes Past Medical History: HTN, CVA/TIA, Dementia Family History: None Social History: Non Smoker, No Alcohol, No Drug Use, Care Facility Surgical History: PEG/GTube Psychiatricy History: None Medication: Reviewed Family Medical History - Family Member Mother History Unknown: Yes Ethnicity: Unknown Living Status: Unknown ED Physical Exam - Physical Examination General/Constitutional: Awake, Well-developed, well-nourished, Alert, No distress, GCS 15, Non-toxic appearing, Ambulatory Head: Atraumatic Eyes: Lids, conjuctiva normal, PERRL, EOMI Skin: Nl inspection, No rash, No skin lesions, No ecchymosis, Well hydrated, No lymphadenopathy ENMT: External ears, nose nl, Nasal exam nl, Lips, teeth, gums nl Neck: Nontender, Full ROM w/o pain, No JVD, No nuchal rigidity, No bruit, No mass, No stridor Respiratory: Nl effort/Exclusion, Clear to Auscultation, No Wheeze/Rhonchi/Rales Cardio Vascular: RRR, No murmur, gallop, rubs, NL S1 S2 GI: No tenderness/rebounding/guarding, No organomegaly, No hernia, Normal BS's, Nondistended, No mass/bruits, No McBurney tenderness Other GI comments:: g-tube out and opening still intact : No CVA tenderness Extremities: No tenderness or effusion, Full ROM, normal strength in all extremities, No edema, Normal digits & nails Neuro/Psych: Alert/oriented, DTR's symmetric, Normal sensory exam, Normal motor strength, Judgement/insight normal, Mood normal, Normal gait, No focal deficits Misc: Normal back, No paraspinal tenderness ED Assessment - Assessment General Assessment: g-tube replacement ED Septic Shock - . Is Septic Shock (SBP<90, OR Lactate>4 mmol\L) present?: No - <6hrs of presentation: Vital Signs: Vital Signs - 8 hr 09/18/18 12:17 Temp 97.5 F HR 69 RR 18 BP 129/67 O2 Sat % 95 ED Reassessment (Disposition) - Reassessment Reassessment Condition:: Improved - Diagnosis Diagnosis:: g-tube placement - Aftercare/Follow up Instructions Aftercare/Follow-Up Instructions:: Counseled pt regarding lab results/diagnosis & need follow up, Refer to Discharge Instructions, Counseled pt & family regarding lab results/diagnosis & need follow up - Patient Disposition Discharge/Transfer:: [facility] Condition at Disposition:: Improved
--- NOTE | 2018-09-19 10:14 | Diagnostic Imaging Report ---
Upper GI (Limited) HISTORY: Gastrostomy tube placement Water-soluble contrast was instilled through patient's gastrostomy tube. The exam demonstrates opacification of the gastric lumen with flow contrast into the duodenum. No extravasation. IMPRESSION: 1. Confirmation of gastrostomy tube within the gastric lumen
== END 2018-09-18 12:47 ==
LOC: ER 12:08
DX: Z43.1 Encounter for attention to gastrostomy (principal); I10 Essential (primary) hypertension; F03.90 Unspecified dementia, unspecified severity, without behavioral disturbance, psychotic disturbance, mood disturbance, and anxiety; Z86.73 Personal history of transient ischemic attack (TIA), and cerebral infarction without residual deficits
CPT/HCPCS: Z7502; Z7610